=== PATIENT | male | born 1975 | race Caucasian/White ===

== ENCOUNTER 2023-12-07 20:50 | Emergency (ER) | payer SELFPAY ==
--- OUTSIDE RECORDS SUMMARY | 2023-12-07 20:54 | XMS REPORT | Continuity of Care Document ---
Author Name Unknown Address [address] [facility] [address] [place], [place] [id number] [place] [address] thconnect Address [address] [facility] [address] [place] [address] Care Team Providers Care Monument Letterer Name Role Phone Shivam Beth Attending Clinician Unavailable Kellen Salinas Attending Clinician Unavailab le Physician, No Primary or Family Admitting Clinic caren Unavailable Shivam Beth Admitting Clinician Unavailable Payers Payer Name Policy Type Policy Number Effective Date Expirati on Date Source Allergies, Adverse Reactions, Alerts Allergy Name Allergy Type Status Severity Reaction(s) Onset Date Inactive Date Treating Clinician Comments Source cephalex in DA Active [place] RASH-UNKNOWN 09-15 00:00: 00 [facility] are [facility] cephalex in DA Active MO RASH-UNKNOWN 09-10 00:00: 00 [facility] are [facility] Encounters Start Date/Time End Date/Time Encounter Type Admission Type Attending Clinicians Care Facility Care Department Encounter ID Source 2023-09-19 12:21:00 2023-09-19 12:21:00 Outpatient Shivam BethW REF [id number] [facility] 2023-09-16 19:53:00 2023-09-19 11:54:00 Inpatient EM Shivam Beth TELE [id number] [facility] [place] 2023-09-11 20:22:00 2023-09-11 21:00:00 Emergency EM Kellen Salinas CERS [id number] [facility] are [place] Results Test Description Test Time Test Comments Results Result Co mments Source [id number] 19:49:00* Test Item Value Reference Range Interpretation Comme nts GLUBED (test code = GLUBED) 208 mg/dL 70-105 H Intravenous admi nistration of N-acetylcysteine which resultsin blood concentrations >5 mg/dL will cause overestimationof blood glucose results. Do not use during intravenousinfusion of N'acetylcysteine. [id number] 16:28:00* Test Item Value Reference Range Interpretation Comme nts GLUBED (test code = GLUBED) 176 mg/dL 70-105 H Intravenous admi nistration of N-acetylcysteine which resultsin blood concentrations >5 mg/dL will cause overestimationof blood glucose results. Do not use during intravenousinfusion of N'acetylcysteine. [id number] 12:28:00* Test Item Value Reference Range Interpretation Comme nts GLUBED (test code = GLUBED) 165 mg/dL 70-105 H Intravenous admi nistration of N-acetylcysteine which resultsin blood concentrations >5 mg/dL will cause overestimationof blood glucose results. Do not use during intravenousinfusion of N'acetylcysteine. [id number] 08:08:00* Test Item Value Reference Range Interpretation Comme nts GLUBED (test code = GLUBED) 156 mg/dL 70-105 H Intravenous admi nistration of N-acetylcysteine which resultsin blood concentrations >5 mg/dL will cause overestimationof blood glucose results. Do not use during intravenousinfusion of N'acetylcysteine. VANCOMYCIN [id number] 03:24:00* Test Item Value Reference Range Interpretation Comme nts VANCOMYCIN TROUGH (test code = VANCT) 15.1 ug/mL 10.0-20.0 N BASIC METABOLIC [id number] 03:22:00* Test Item Value Reference Range Interpretation Comme nts SODIUM (test code = NA) 135 mmol/L 135-145 N POTASSIUM (test code = K) 3.5 mmol/L 3.5-5.1 N CHLORIDE (test code = CL) 104 mmol/L 98-107 N CARBON DIOXIDE (test code = CO2) 28 mmol/L 21-32 N ANION GAP (test code = GAP) 6.5 2.0-16.0 N GLUCOSE (test code = GLU) 172 mg/dL 65-99 H BLOOD UREA NITROGEN (test code = BUN) 10 mg/dL 4-23 N GLOMERULAR FILTRATION RATE (test code = GFR) >=60 max estimate ml/min The Glomerular Filtration Rate is a calculated parameterbased on serum Creatinine, patient age and sex. GFR valuesless than 60 mL/min/1.73 square meters are indicative ofChronic Kidney Disease. Values less than 15 mL/min/1.73square meters indicate Kidney failure. The calculation forGFR is based on the CKD-EPI (202) calculation. This formulais race indifferent and is the recommended formula for GFRby the National Kidney Foundation for Adults.The GFR will not calculate if the sex is unknown or if thepatient's age is <18 years. CREATININE (test code = CREAT) 0.6 mg/dL 0.6-1.5 N BUN/CREATININE RATIO (test code = BUN/CREA) 16.7 12.0-20.0 N CALCIUM (test code = CA) 8.3 mg/dL 8.5-10.1 L RAPID PLASMA [id number] 03:13:00* Test Item Value Reference Range Interpretation Comme nts RAPID PLASMA REAGIN (test code = RPR) Non Reactive Performed At: [facility] [address] [id number] Rene Lawson MD Ph:[phone] HIV 1 2 COMBO AG/AB [id number] 03:13:00* Test Item Value Reference Range Interpretation Comme nts HIV 1 2 COMBO AG/AB SCREEN (test code = [id number]) Non-Reactive NONREACTIVE N The [facility] HIV Ag/Ab Combo (CHIV) assay is anin-vitro diagnostic immunoassay for the simultaneousqualitative detection of human immunodeficiency virus [id number] and antibodies to human immunodeficiency virusestype 1 (including group "O") and type 2. CBC W/AUTO [id number] 03:07:00* Test Item Value Reference Range Interpretation Comme nts WHITE BLOOD CELL (test code = WBC) 21.2 10 3/uL 4.5-11.0 H RED BLOOD CELL (test code = RBC) 4.33 10 6/uL 4.30-5.90 N HEMOGLOBIN (test code = HGB) 13.0 g/dL 14.0-18.0 L HEMATOCRIT (test code = HCT) 38.9 % 40.0-55.0 L MEAN CELL VOLUME (test code = MCV) 90 fL 81-102 N MEAN CELL HGB (test code = MCH) 30.0 pg 26.0-34.0 N MEAN CELL HGB CONCENTRATION (test code = MCHC) 33.4 g/dL 31.0-37.0 N RED CELL DISTRIBUTION WIDTH (test code = RDW) 14.3 % 11.6-14.4 N PLATELET COUNT (test code = PLT) 340 10 3/uL 150-400 N MEAN PLATELET VOLUME (test code = MPV) 11.5 fL 9.0-12.6 N NEUTROPHIL % (test code = NT%) 75.3 % 33.0-76.0 N IMMATURE GRANULOCYTE % (test code = IG%) 0.7 % 0.0-1.0 N LYMPHOCYTE % (test code = LY%) 9.8 % 14.0-56.4 L MONOCYTE % (test code = MO%) 9.4 % 0.0-12.9 N EOSINOPHIL % (test code = EO%) 4.3 % 0.0-7.0 N BASOPHIL % (test code = BA%) 0.5 % 0-2.0 N NUCLEATED RBC % (test code = NRBC%) 0.0 % 0-0.2 N NEUTROPHIL # (test code = NT#) 15.98 10 3/uL 1.5-7.0 H IMMATURE GRANULOCYTE # (test code = IG#) 0.140 x10 3/uL 0.000-0.100 H LYMPHOCYTE # (test code = LY#) 2.09 10 3/uL 1.50-4.00 N MONOCYTE # (test code = MO#) 1.99 10 3/uL 0.20-0.80 H EOSINOPHIL # (test code = EO#) 0.91 10 3/uL 0.0-0.5 H BASOPHIL # (test code = BA#) 0.11 10 3/uL 0.0-0.1 H NUCLEATED RBC # (test code = NRBC#) 0.000 10 3/uL 0.000-0.012 N [id number] 20:47:00* Test Item Value Reference Range Interpretation Comme nts GLUBED (test code = GLUBED) 273 mg/dL 70-105 H Intravenous admi nistration of N-acetylcysteine which resultsin blood concentrations >5 mg/dL will cause overestimationof blood glucose results. Do not use during intravenousinfusion of N'acetylcysteine. LIPID PROFILE (CORONARY RISK)2023-09-17 20:43:00* Test Item Value Reference Range Interpretation Comme [facility] TRIGLYCERIDES (test code = TRIG) 238 mg/dL 0-149 H CHOLESTEROL (test code = CHOL) 181 mg/dL 0-200 N CHOLESTEROL/HDL RATIO (test code = CHOLHDL) 6 1-6 N HDL CHOLESTEROL (test code = HDL) 32 mg/dL 40-60 L LIPOPROTEIN LDL (test code = LDLC) 114 mg/dL 0-100 H [id number] 20:43:00* Test Item Value Reference Range Interpretation [facility] AMYLASE (test code = ROSALBA) 22 U/L 25-115 L [id number] 20:43:00* Test Item Value Reference Range Interpretation [facility] LIPASE (test code = LIP) 31 U/L 13-75 N CAUTION: Patient Reference Range of the current Lipase method differs significantly from the prior Lipase Reference range. (prior range 73-393 U/L) [id number] 16:29:00* Test Item Value Reference Range Interpretation [facility] GLUBED (test code = GLUBED) 215 mg/dL 70-105 H Intravenous admi nistration of N-acetylcysteine which resultsin blood concentrations >5 mg/dL will cause overestimationof blood glucose results. Do not use during intravenousinfusion of N'acetylcysteine. CBC W/AUTO [id number] 14:22:00* Test Item Value Reference Range Interpretation Comme [facility] WHITE BLOOD CELL (test code = WBC) 21.0 10 3/uL 4.5-11.0 H RED BLOOD CELL (test code = RBC) 4.49 10 6/uL 4.30-5.90 N HEMOGLOBIN (test code = HGB) 13.3 g/dL 14.0-18.0 L HEMATOCRIT (test code = HCT) 40.0 % 40.0-55.0 N MEAN CELL VOLUME (test code = MCV) 89 fL 81-102 MEAN CELL HGB (test code = MCH) 29.6 pg 26.0-34.0 N MEAN CELL HGB CONCENTRATION (test code = MCHC) 33.3 g/dL 31.0-37.0 N RED CELL DISTRIBUTION WIDTH (test code = RDW) 14.5 % 11.6-14.4 H PLATELET COUNT (test code = PLT) 338 10 3/uL 150-400 N MEAN PLATELET VOLUME (test code = MPV) 12.0 fL 9.0-12.6 N NEUTROPHIL % (test code = NT%) 71.1 % 33.0-76.0 N IMMATURE GRANULOCYTE % (test code = IG%) 0.5 % 0.0-1.0 N LYMPHOCYTE % (test code = LY%) 13.7 % 14.0-56.4 L MONOCYTE % (test code = MO%) 9.3 % 0.0-12.9 N EOSINOPHIL % (test code = EO%) 4.8 % 0.0-7.0 N BASOPHIL % (test code = BA%) 0.6 % 0-2.0 N NUCLEATED RBC % (test code = NRBC%) 0.0 % 0-0.2 N NEUTROPHIL # (test code = NT#) 14.98 10 3/uL 1.5-7.0 H IMMATURE GRANULOCYTE # (test code = IG#) 0.110 x10 3/uL 0.000-0.100 H LYMPHOCYTE # (test code = LY#) 2.88 10 3/uL 1.50-4.00 N MONOCYTE # (test code = MO#) 1.95 10 3/uL 0.20-0.80 H EOSINOPHIL # (test code = EO#) 1.00 10 3/uL 0.0-0.5 H BASOPHIL # (test code = BA#) 0.12 10 3/uL 0.0-0.1 H NUCLEATED RBC # (test code = NRBC#) 0.000 10 3/uL 0.000-0.012 N SED [id number] 14:22:00* Test Item Value Reference Range Interpretation Comme nts SED RATE (test code = SEDW) 28 mm/hr 0-20 H AB HEPATITIS A [id number] 14:11:00* Test Item Value Reference Range Interpretation Comme nts AB HEPATITIS A IGM (test cod e = HAVMAB) Non-Reactive NONREACTIVE AG HEPATITIS B [id number] 14:11:00* Test Item Value Reference Range Interpretation Comme nts AG HEPATITIS B SURFACE (test code = HBSAG) Non-Reactive NONREACTIVE AB HEPATITIS B CORE [id number] 14:11:00* Test Item Value Reference Range Interpretation Comme nts AB HEPATITIS B CORE IGM (kemi t code = HBCMAB) Non-Reactive NONREACTIVE AB HEPATITIS [id number] 14:11:00* Test Item Value Reference Range Interpretation Comme nts AB HEPATITIS C (test code = HCVAB) Non-Reactive NONREACTIVE HGBA1C - GLYCOSYLATED [id number] 14:08:00* Test Item Value Reference Range Interpretation Comme nts GLYCOSYLATED HEMOGLOBIN (HA1C) (test code = GLYHGB) 8.3 % 4.5-5.9 H The [place] Diabetes Association recommends a therapeuticrange of <7.0% Hemoglobin A1c for patients with diabetesmellitus (Type 2 diabetes). BASIC METABOLIC [id number] 13:35:00* Test Item Value Reference Range Interpretation Comme nts SODIUM (test code = NA) 134 mmol/L 135-145 L POTASSIUM (test code = K) 3.7 mmol/L 3.5-5.1 N CHLORIDE (test code = CL) 104 mmol/L 98-107 N CARBON DIOXIDE (test code = CO2) 28 mmol/L 21-32 N ANION GAP (test code = GAP) 5.7 2.0-16.0 N GLUCOSE (test code = GLU) 222 mg/dL 65-99 H BLOOD UREA NITROGEN (test code = BUN) 10 mg/dL 4-23 N GLOMERULAR FILTRATION RATE (test code = GFR) >=60 max estimate ml/min The Glomerular Filtration Rate is a calculated parameterbased on serum Creatinine, patient age and sex. GFR valuesless than 60 mL/min/1.73 square meters are indicative ofChronic Kidney Disease. Values less than 15 mL/min/1.73square meters indicate Kidney failure. The calculation forGFR is based on the CKD-EPI (202) calculation. This formulais race indifferent and is the recommended formula for GFRby the National Kidney Foundation for Adults.The GFR will not calculate if the sex is unknown or if thepatient's age is <18 years. CREATININE (test code = CREAT) 0.6 mg/dL 0.6-1.5 N BUN/CREATININE RATIO (test code = BUN/CREA) 16.7 12.0-20.0 N CALCIUM (test code = CA) 9.1 mg/dL 8.5-10.1 N [id number] 13:35:00* Test Item Value Reference Range Interpretation Comme nts PHOSPHOROUS (test code = PHOS) 2.6 mg/dL 2.5-4.9 N [id number] 13:35:00* Test Item Value Reference Range Interpretation Comme nts MAGNESIUM (test code = MAG) 2.1 mg/dL 1.8-2.4 N TSH REFLEX TO [id number] 13:35:00* Test Item Value Reference Range Interpretation Comme nts TSH REFLEX TO FT4 (test code = TSHREFLEX) 1.43 mIU/mL 0.36-3.74 N C REACTIVE [id number] 13:35:00* Test Item Value Reference Range Interpretation Comme nts C REACTIVE PROTEIN (test cod e = CRP) 7.45 mg/dL 0.00-0.33 H [id number] 12:29:00* Test Item Value Reference Range Interpretation Comme nts GLUBED (test code = GLUBED) 221 mg/dL 70-105 H Intravenous admi nistration of N-acetylcysteine which resultsin blood concentrations >5 mg/dL will cause overestimationof blood glucose results. Do not use during intravenousinfusion of N'acetylcysteine. [id number] 09:36:00* Test Item Value Reference Range Interpretation Comme nts GLUBED (test code = GLUBED) 239 mg/dL 70-105 H Intravenous admi nistration of N-acetylcysteine which resultsin blood concentrations >5 mg/dL will cause overestimationof blood glucose results. Do not use during intravenousinfusion of N'acetylcysteine. DRUGS OF ABUSE SCREEN [id number] 08:39:00* Test Item Value Reference Range Interpretation Comme nts UR COCAINE (test code = COCAU) NEGATIVE NEGATIVE Test Threshold L evels: Amphetamine: 500 ng/mL Methamphetamines: 500 ng/mL Barbiturates: 200 ng/mL Benzodiazepines: 150 ng/mL Cocaine: 150 ng/mL Methadone (EDDP): 200 ng/mL Opiates: 100 or 2000 ng/mL THC: 50 ng/mL TCA: 300 mg/mL This is a preliminary analytical result. A more specificalternative chemical method must be used in order to obtaina confirmed result. Unconfirmed Drugs of Abuse screening results should not beused for non-medical purposes. UR METHAMPHETAMINE (test code = METHAMPHU) NEGATIVE NEGATIVE UR CANABINOIDS (test code = CANU) NEGATIVE NEGATIVE UR AMPHETAMINE (test code = AMPHU) NEGATIVE NEGATIVE UR BARBITURATE (test code = BARBQLU) NEGATIVE NEGATIVE UR BENZODIAZEPINE (test code = BENZU) NEGATIVE NEGATIVE UR OPIATES QUAL (test code = OPIAQLU) POSITIVE NEGATIVE A UR TRICYCLICS (test code = TRICYCU) Negative NEGATIVE UR PHENCYCLIDINE (PCP) (test code = PHENCU) Negative NEGATIVE UA RFLX MICR CULT IF [id number] 08:07:00* Test Item Value Reference Range Interpretation Comme nts UA COLOR (test code = COLU) STRAW YELLOW UA APPEARANCE (test code = APPU) CLEAR CLEAR UA GLUCOSE DIPSTICK (test co de = DGLUU) 3+ NEGATIVE A UA BILIRUBIN DIPSTICK (test code = BILU) NEGATIVE NEGATIVE UA KETONE DIPSTICK (test cod e = KETU) NEGATIVE NEGATIVE UA SPECIFIC GRAVITY (test co de = SGU) 1.020 1.005-1.025 N UA BLOOD DIPSTICK (test code = GÓMEZ) NEGATIVE NEGATIVE UA PH DIPSTICK (test code = CHACE) 5.0 5.0-8.0 UA PROTEIN DIPSTICK (test co de = PROU) NEGATIVE NEGATIVE UA UROBILINOGEN DIPSTICK (te st code = URO) NEGATIVE EU/dL 0.1-0.2 UA NITRITE DIPSTICK (test co de = PATIENCE) NEGATIVE NEGATIVE UA LEUKOCYTE ESTERASE DIPSTI CK (test code = LEUU) NEGATIVE NEGATIVE UA WBC (test code = WBCU) 0-2 /hpf 0-3 UA RBC (test code = RBCU) NONE SEEN /hpf 0-3 UA BACTERIA (test code = BACU) RARE /HPF NEGATIVE UA SQUAMOUS CELLS (test code = SQU) RARE /HPF FEW Indication for culture: RiskForSepsis-no oth srcSpecimen Description: CLEAN CATCHCBC W/AUTO [id number] 01:20:00* Test Item Value Reference Range Interpretation Comme nts WHITE BLOOD CELL (test code = WBC) 20.9 10 3/uL 4.5-11.0 H RED BLOOD CELL (test code = RBC) 4.35 10 6/uL 4.30-5.90 N HEMOGLOBIN (test code = HGB) 13.0 g/dL 14.0-18.0 L HEMATOCRIT (test code = HCT) 40.7 % 40.0-55.0 N MEAN CELL VOLUME (test code = MCV) 94 fL 81-102 N MEAN CELL HGB (test code = MCH) 29.9 pg 26.0-34.0 N MEAN CELL HGB CONCENTRATION (test code = MCHC) 31.9 g/dL 31.0-37.0 N RED CELL DISTRIBUTION WIDTH (test code = RDW) 14.6 % 11.6-14.4 H PLATELET COUNT (test code = PLT) 330 10 3/uL 150-400 N MEAN PLATELET VOLUME (test code = MPV) 11.7 fL 9.0-12.6 N NEUTROPHIL % (test code = NT%) 65.8 % 33.0-76.0 N IMMATURE GRANULOCYTE % (test code = IG%) 1.6 % 0.0-1.0 H LYMPHOCYTE % (test code = LY%) 18.0 % 14.0-56.4 N MONOCYTE % (test code = MO%) 10.4 % 0.0-12.9 N EOSINOPHIL % (test code = EO%) 3.7 % 0.0-7.0 N BASOPHIL % (test code = BA%) 0.5 % 0-2.0 N NUCLEATED RBC % (test code = NRBC%) 0.0 % 0-0.2 N NEUTROPHIL # (test code = NT#) 13.73 10 3/uL 1.5-7.0 H IMMATURE GRANULOCYTE # (test code = IG#) 0.340 x10 3/uL 0.000-0.100 H LYMPHOCYTE # (test code = LY#) 3.75 10 3/uL 1.50-4.00 N MONOCYTE # (test code = MO#) 2.17 10 3/uL 0.20-0.80 H EOSINOPHIL # (test code = EO#) 0.78 10 3/uL 0.0-0.5 H BASOPHIL # (test code = BA#) 0.11 10 3/uL 0.0-0.1 H NUCLEATED RBC # (test code = NRBC#) 0.000 10 3/uL 0.000-0.012 N [id number] 22:08:00* Test Item Value Reference Range Interpretation Comme nts GLUBED (test code = GLUBED) 225 mg/dL 70-105 H Intravenous admi nistration of N-acetylcysteine which resultsin blood concentrations >5 mg/dL will cause overestimationof blood glucose results. Do not use during intravenousinfusion of N'acetylcysteine. Notes Date/Time Note Provider Source 2023-09-19 11:17:00 [facility] [place] Endocrinology Progress Note REPORT #: [id number] REPORT STATUS: Signed DATE: 09/19/23 TIME: 1116 PATIENT: CATA MERA UNIT #: [id number] ROOM #: [id number] BED: 1 : 75 AGE: 48 SEX: M ATTEND: Shivam Beth MD ADM AUTHOR: Homero Roach MD ATTENTION *EDITS and/or ADDENDA must be made in Patient Keeper for this note. * * Edits and ammendments created in [facility] are not visible * * in Patient Keeper or the legal medical record (HPF). * -- ASSESSMENT AND PLAN -- PROBLEMS: 1: Type 2 diabetes mellitus with hyperglycemia A/P: UNCONTROLLED (QVZE8T=0.3%,HYPERGLYCEMIA) TYPE II DM EXACERBATED BY INFECTION IMPROVED GLYCEMIC CONTROL: CLQ=983 HS GNGQDOB=[birth year]. OBSERVE ON SQ BASAL/BOLUS INSULIN PLUS LINAGLIPTIN. DIABETES AND NUTRITION EDUCATION. OK FROM ENDOCRINE STANDPOINT FOR DISCHARGE ONCE DIABETES EDUCATION COMPLETED. DISCUSSED WITH NURSE. THANK YOU. WILL SIGN OFF. -- SUBJECTIVE -- CHIEF COMPLAINT: HYPERGLYCEMIA HPI: EVENTS NOTED: TOLERATING DIET. -- OBJECTIVE -- VITALS (09/17 11:17 - 09/18 11:17): Temperature C: 36.8 (36.5 - 36.8) Temperature source: Oral Pulse Rate 89 (68 - 94) Respiratory rate: 18 (16 - 19) Blood pressure: 164/76 (152/65 - 193/91) -EXAM- GENERAL: Well developed, well nourished, in no apparent distress. HEAD: Normocephalic, atraumatic. NECK: trachea midline. CHEST: Grossly normal appearance. HEART: NO TACHYCARDIA ABDOMEN: NON-DISTENDED NEUROLOGICAL: NORMAL SPEECH PSYCHIATRIC: Alert and oriented to time, person, place -- DATA -- MEDICATIONS NICOTINE 21 MG TRANSDERM DAILY MELATONIN 3 MG PO BEDTIME PRN diphenhydrAMINE HCL 25 MG PO DAILY PRN DEXTROSE 50%-WATER 50 ML IV ASDIR PATIENT'S OWN MEDICATION 1 APPLICATION TOPICALLY TWICE TOPICAL BID ALPRAZolam 0.5 MG PO BID PRN MAG HYDROX/AL HYDROX/SIMETH 30 ML PO Q6H PRN HYDROcodone BITARTRATE/APAP 1 TAB PO Q4H PRN HYDROcodone BITARTRATE/APAP 1 TAB PO Q4H PRN ACETAMINOPHEN 650 MG PO Q4H PRN hydrALAZINE HCL 10 MG IV Q6H PRN INSULIN LISPRO 0 UNITS SUBQ AC HS polyethylene glycoL 3350 1 PKT PO DAILY PRN DOCUSATE SODIUM 100 MG PO BID PRN NIFEdipine 30 MG PO Q12HR INSULIN GLARGINE 36 UNITS SUBQ QAM@0800 ENOXAPARIN SODIUM 40 MG SUBQ DAILY LINEZOLID 600 MG PO Q12HR ONDANSETRON HCL/PF 4 MG IV Q4H PRN LINAGLIPTIN 5 MG PO DAILY GLUCAGON 1 MG IM ASDIR PRN LABS CBC W/AUTO DIFF (09/19/23 06:13) WHITE BLOOD CELL 15.4H H RED BLOOD CELL 4.30 HEMOGLOBIN 12.6L L HEMATOCRIT 39.9L L MEAN CELL VOLUME 93 D MEAN CELL HGB 29.3 MEAN CELL HGB CONCENTRATION 31.6 RED CELL DISTRIBUTION WIDTH 14.6 H PLATELET COUNT 354 MEAN PLATELET VOLUME 11.1 NEUTROPHIL % 62.6 IMMATURE GRANULOCYTE % 0.8 LYMPHOCYTE % 18.7 MONOCYTE % 12.1 EOSINOPHIL % 5.1 BASOPHIL % 0.7 NUCLEATED RBC % 0.0 NEUTROPHIL # 9.65 H IMMATURE GRANULOCYTE # 0.120 H LYMPHOCYTE # 2.87 MONOCYTE # 1.86 H EOSINOPHIL # 0.78 H BASOPHIL # 0.10 NUCLEATED RBC # 0.000 GLU BED (09/18/23 19:48) GLUBED 208 H GLU BED (09/18/23 16:27) GLUBED 176 H GLU BED (09/18/23 12:27) GLUBED 165 H -- ATTESTATION -- TIME SPENT ON PATIENT CARE: - Direct 30 minutes CARE ACTIVITIES / CARE COORDINATION: - I have reviewed the history and repeated the burrell elements - I have seen and examined this patient - I have reviewed the progress in the clinical course since the last examination - I have discussed the patient's condition with other members of the care team ADDITIONAL DETAIL: I HAVE SPENT >35 MINUTES IN THE EVALUATION AND TREATMENT OF THIS PATIENT. Signed in PatientKeeper by Homero Roach MD on 09/19/23 at 11:19 at 1119 ATTENTION *EDITS and/or ADDENDA must be made in Patient Keeper for this note. * * Edits and ammendments created in [facility] are not visible * * in Patient Keeper or the legal medical record (HPF). * RPT #: [id number] END OF REPORT [facility] 2023-09-19 10:23:00 [facility] [place] Med Order Sheet REPORT #: [id number] REPORT STATUS: Signed DATE: 09/19/23 TIME: 1023 PATIENT: CATA MERA UNIT #: [id number] ROOM #: [id number] BED: 1 : 75 AGE: 48 SEX: M ATTEND: Shivam Beth MD ADM AUTHOR: Cesario Daniel DO ATTENTION *EDITS and/or ADDENDA must be made in Patient Keeper for this note. * * Edits and ammendments created in [facility] are not visible * * in Patient Keeper or the legal medical record (HPF). * Discharge Medication Reconciliation DISCHARGE MEDICATION LIST Linezolid Tab (Zyvox Tab) Dose: 600MG PO Q12HR, Disp: 28 tablet, Refills: 0 Desonide lotn 0.05 % Dose: 1 APPLIC TOPICAL BID diphenhydrAMINE capsule Dose: oral Insulin (NPH/Reg 70/30) Inj (HumuLIN 70/30 Inj) Dose: 6 UNITS SUBQ AC BK Insulin Aspart Inj (NF) (NovoLOG Inj (NF)) Dose: 1 UNITS SUBQ ASDIR NIFEdipine XL Tab (Procardia XL Tab) Dose: 30MG PO Q12HR, Disp: 60 tablet, Refills: 1 Linagliptin Tab (Tradjenta Tab) Dose: 5MG PO DAILY, Disp: 30 tablet, Refills: 1 The following Hospital Medications have not yet been reconciled: Acetaminophen Tab (Tylenol Tab) 650MG PO Q4H PRN pain 1-3/temp > 100.5/headache stopping on 10/15 at 22:01 ALPRAZolam Tab (Xanax Tab) 0.5MG PO BID PRN agitation or anxiety stopping on 09/26 at 09:01 Dextrose 50% Syringe (D50W Syringe) 50ML IV ASDIR stopping on 10/15 at 22:01 Docusate Sodium Cap (Colace Cap) 100MG PO BID PRN stool softener stopping on 10/16 at 09:01 Enoxaparin 40mg/0.4mL Inj (Lovenox 40mg/0.4mL Inj) 40MG SUBQ DAILY stopping on 10/16 at 09:01 Glucagon Inj 1MG IM ASDIR PRN hypoglycemia protocol stopping on 10/15 at 22:01 hydrALAZINE Inj (Apresoline Inj) 10MG IV Q6H PRN sbp>170 or dbp>105 stopping on 10/15 at 22:01 HYDROcodone/APAP 10/325 Tab ([place] 10/325 Tab) 1TAB PO Q4H PRN pain scale 7-10 stopping on 09/20 at 22:01 HYDROcodone/APAP 5/325 Tab ([place] 5/325 Tab) 1TAB PO Q4H PRN pain scale 4-6 stopping on 09/20 at 22:01 Insulin (Glargine) Inj (Lantus Inj) 36UNITS SUBQ QAM@0800 stopping on 10/17 at 08:01 Mag/Al/Simeth Oral Liquid (Maalox Max Oral Liquid) 30ML PO Q6H PRN indigestion/heartburn stopping on 10/15 at 22:01 Melatonin Tab 3MG PO BEDTIME PRN insomnia stopping on 10/16 at 21:01 Nicotine 21mg/24hr Patch (Nicoderm CQ 21mg/24hr Patch) 21MG TRANSDERM DAILY stopping on 10/16 at 01:09 Ondansetron Inj (Zofran Inj) 4MG IV Q4H PRN nausea and vomiting stopping on 10/15 at 22:01 Patient's Own Medication (Patient's Own Medication) 1 APPLICATION TOPICALLY TWICE TOPICAL BID stopping on 10/16 at 21:01 Polyethylene Glycol Powder (Miralax Powder) 1PKT PO DAILY PRN constipation stopping on 10/16 at 09:01 at 1023 ATTENTION *EDITS and/or ADDENDA must be made in Patient Keeper for this note. * * Edits and ammendments created in [facility] are not visible * * in Patient Keeper or the legal medical record ([facility] * RPT #: [id number] END OF REPORT [facility] 2023-09-19 10:23:00 [facility] [place] Hospitalist D/C Summary REPORT #: [id number] REPORT STATUS: Signed DATE: 09/19/23 TIME: 1023 PATIENT: CATA MERA UNIT #: [id number] ROOM #: [id number] BED: 1 : 75 AGE: 48 SEX: M ATTEND: Shivam Beth MD ADM AUTHOR: Cesario Daniel DO ATTENTION *EDITS and/or ADDENDA must be made in Patient Keeper for this note. * * Edits and ammendments created in [employer] are not visible * * in Patient Keeper or the legal medical record ([facility] * -- PROBLEMS/PROCEDURES -- ADMISSION DATE: 09/16/23 ADMITTING DIAGNOSES: - Cellulitis - Type 2 diabetes mellitus with hyperglycemia DISCHARGE DATE: 09/19/23 DISCHARGE DIAGNOSES: - Cellulitis - Type 2 diabetes mellitus with hyperglycemia -- HOSPITAL COURSE -- HOSPITAL COURSE: This is a 48-year-old male with past medical history of hypertension, hyperlipidemia, newly diagnosed DM 2, polysubstance abuse/IVDA, and prior history of MRSA, who presented to our facility from an outside ER to be evaluated for possibly staph infection and what appears to be severe folliculitis, diffuse however worse on left upper extremity. Patient started on IV antibiotics with improvement in symptoms. Patient was cleared for discharge by ID. Patient discharged on Zyvox for 14 days. Date of discharge patient doing well, labs and vital stable. -- DISCHARGE MEDICATIONS -- ALLERGIES: cephalexin (Intermediate - Allergy) DISCHARGE MEDICATIONS: Please refer to Discharge Medication list for a complete list of discharge medications Desonide lotn 0.05 % 1 APPLIC TOPICAL BID diphenhydrAMINE capsule oral (Route: ORAL) Insulin (NPH/Reg 70/30) Inj (HumuLIN 70/30 Inj) 6 UNITS SUBQ AC BK Insulin Aspart Inj (NF) (NovoLOG Inj (NF)) 1 UNITS SUBQ ASDIR Linagliptin Tab (Tradjenta Tab) 5MG PO DAILY, Disp: 30 tablet, Refills: 1 Linezolid Tab (Zyvox Tab) 600MG PO Q12HR, Disp: 28 tablet, Refills: 0 NIFEdipine XL Tab (Procardia XL Tab) 30MG PO Q12HR, Disp: 60 tablet, Refills: 1 -- DISCHARGE INSTRUCTIONS -- PENDING LABS/TESTS AT DISCHARGE: DNA PROBE GC/CHLAMYDIA GENITAL (09/17/23 07:43) Status: Received PK DISCHARGE ORDERS: DC Order - No eCQM 2019. Details: Details: Order number: [id number] Category: PKDC - PK Discharge Orders Order status: Transmitted Details: Discharge order: Yes Discharge to: Home/Self Care Diet: Resume Home Diet/Feeds Activity: Resume Normal Activity PCP follow up timeframe: In 1-2 weeks Additional Discharge Routines: PCP Follow-Up Ordered by: Cesario Daniel DO Sep 19, 2023 10:24am Entered by: Cesario Daniel DO Service date: Sep 19, 2023 10:23am Discharge w/Instructions ADDTIONAL DISCHARGE INSTRUCTIONS: Emergency Instructions: The patient was instructed to present to the nearest Emergency Department or call 911 should their symptoms return or worsen.; -- OBJECTIVE -- VITALS (09/17 10:23 - 09/18 10:23): Temperature C: 36.8 (36.5 - 36.8) Temperature source: Oral Pulse Rate 89 (68 - 94) Respiratory rate: 18 (16 - 19) Blood pressure: 164/76 (152/65 - 193/91) -EXAM- OTHER: GENERAL: No acute distress, non-toxic appearing, awake and conversant. HEAD: Normal with no signs of head trauma. EYES: PERRLA, EOMI, conjunctiva normal, no discharge. ENT: Hearing grossly intact, no nasal discharge, moist oral mucosa. NECK: Neck is supple, no tenderness, no masses or thyromegaly, no JVD. LUNGS: Clear breath sounds bilaterally. No wheezes, rales, or rhonchi. HEART: RRR, NL S1/S2, no murmurs, no lower extremity edema. ABD: Bowel sounds +, soft, nondistended, no guarding or rebound. EXT: Normal range of motion, no joint swelling, no clubbing, no cyanosis. SKIN: diffuse rashes more pronounced in upper extremities, NEURO: Alert and oriented x 3. Normal affect. -- DATA -- LABS CBC W/AUTO DIFF (09/19/23 06:13) WHITE BLOOD CELL 15.4H H RED BLOOD CELL 4.30 HEMOGLOBIN 12.6L L HEMATOCRIT 39.9L L MEAN CELL VOLUME 93 D MEAN CELL HGB 29.3 MEAN CELL HGB CONCENTRATION 31.6 RED CELL DISTRIBUTION WIDTH 14.6 H PLATELET COUNT 354 MEAN PLATELET VOLUME 11.1 NEUTROPHIL % 62.6 IMMATURE GRANULOCYTE % 0.8 LYMPHOCYTE % 18.7 MONOCYTE % 12.1 EOSINOPHIL % 5.1 BASOPHIL % 0.7 NUCLEATED RBC % 0.0 NEUTROPHIL # 9.65 H IMMATURE GRANULOCYTE # 0.120 H LYMPHOCYTE # 2.87 MONOCYTE # 1.86 H EOSINOPHIL # 0.78 H BASOPHIL # 0.10 NUCLEATED RBC # 0.000 GLU BED (09/18/23 19:48) GLUBED 208 H GLU BED (09/18/23 16:27) GLUBED 176 H GLU BED (09/18/23 12:27) GLUBED 165 H -- ATTESTATION -- TIME SPENT ON PATIENT CARE: - Direct 40 minutes - Discharge planning 45 minutes CARE ACTIVITIES / CARE COORDINATION: - I have reviewed the history and repeated the burrell elements - I have seen and examined this patient - I have reviewed the progress in the clinical course since the last examination - I have discussed the patient's condition with other members of the care team Signed in PatientKeeper by Cesario Daniel DO on 09/19/23 at 12:07 at 1207 ATTENTION *EDITS and/or ADDENDA must be made in Patient Keeper for this note. * * Edits and ammendments created in [facility] are not visible * * in Patient Keeper or the legal medical record ([facility]). * RPT #: [id number] END OF REPORT [facility] 2023-09-18 16:11:00 [facility] [place] Infect. Dis. Progress Note REPORT #: [id number] REPORT STATUS: Signed DATE: 09/18/23 TIME: 161 PATIENT: CATA MERA UNIT #: [id number] ROOM #: [id number] BED: 1 : 75 AGE: 48 SEX: M ATTEND: Shivam Beth MD ADM AUTHOR: Darrick Moffett MD ATTENTION *EDITS and/or ADDENDA must be made in Patient Keeper for this note. * * Edits and ammendments created in [email or web address] are not visible * * in Patient Keeper or the legal medical record ([facility]). * -- ASSESSMENT AND PLAN -- GENERAL ASSESSMENT: #RUE cellulitis/folliculitis - MRSA #History of MRSA infection #DM2 #Polysubstance abuse Plan: - po Linezolid x 14 days (needs to have [facility] pharmacy or [facility] for affordable prices) -Avoid illicit drugs -- SUBJECTIVE -- HPI: chart reviewed. c/o pains left leg and both arms no fevers -- OBJECTIVE -- VITALS (09/16 16:11 - 09/17 16:11): Temperature C: 36.7 (36.6 - 36.8) Temperature source: Oral Pulse Rate 90 (78 - 92) Respiratory rate: 19 (17 - 19) Blood pressure: 170/91 (137/72 - 181/91) -EXAM- OTHER: Physical Exam: Not in acute distress, not using accessory muscles Eyes: no jaundice ENT: no thrush, hearing CV: S1 S2 regular Lungs: CTA bilaterally Abdomen: soft, non tender No ankle edema No skin rash redness both arms and left leg Neuro: no evident deficits Psyche: appropriate -- DATA -- MEDICATIONS NICOTINE 21 MG TRANSDERM DAILY ALPRAZolam 0.5 MG PO BID PRN VANCOMYCIN HCL with/in SODIUM CHLORIDE 0.9% 1250 MG IV Q8H DOCUSATE SODIUM 100 MG PO BID PRN NIFEdipine 30 MG PO Q12HR ONDANSETRON HCL/PF 4 MG IV Q4H PRN GLUCAGON 1 MG IM ASDIR PRN VANCOMYCIN PHARMACY TO DOSE 1 EACH IV ASDIR MELATONIN 3 MG PO BEDTIME PRN diphenhydrAMINE HCL 25 MG PO DAILY PRN DEXTROSE 50%-WATER 50 ML IV ASDIR PATIENT'S OWN MEDICATION 1 APPLICATION TOPICALLY TWICE TOPICAL BID MAG HYDROX/AL HYDROX/SIMETH 30 ML PO Q6H PRN HYDROcodone BITARTRATE/APAP 1 TAB PO Q4H PRN HYDROcodone BITARTRATE/APAP 1 TAB PO Q4H PRN ACETAMINOPHEN 650 MG PO Q4H PRN hydrALAZINE HCL 10 MG IV Q6H PRN INSULIN LISPRO 0 UNITS SUBQ AC HS polyethylene glycoL 3350 1 PKT PO DAILY PRN INSULIN GLARGINE 36 UNITS SUBQ QAM@0800 ENOXAPARIN SODIUM 40 MG SUBQ DAILY LINAGLIPTIN 5 MG PO DAILY LABS GLU BED (09/18/23 12:27) GLUBED 165 H GLU BED (09/18/23 08:07) GLUBED 156 H CBC W/AUTO DIFF (09/18/23 02:51) WHITE BLOOD CELL 21.2H H RED BLOOD CELL 4.33 HEMOGLOBIN 13.0L L HEMATOCRIT 38.9L L MEAN CELL VOLUME 90 MEAN CELL HGB 30.0 MEAN CELL HGB CONCENTRATION 33.4 RED CELL DISTRIBUTION WIDTH 14.3 PLATELET COUNT 340 MEAN PLATELET VOLUME 11.5 NEUTROPHIL % 75.3 IMMATURE GRANULOCYTE % 0.7 LYMPHOCYTE % 9.8 L MONOCYTE % 9.4 EOSINOPHIL % 4.3 BASOPHIL % 0.5 NUCLEATED RBC % 0.0 NEUTROPHIL # 15.98 H IMMATURE GRANULOCYTE # 0.140 H LYMPHOCYTE # 2.09 MONOCYTE # 1.99 H EOSINOPHIL # 0.91 H BASOPHIL # 0.11 H NUCLEATED RBC # 0.000 VANCO TR (09/18/23 02:51) VANCOMYCIN TROUGH 15.1 BASIC METABOLIC PANEL (09/18/23 02:51) SODIUM 135 POTASSIUM 3.5 CHLORIDE 104 CARBON DIOXIDE 28 ANION GAP 6.5 GLUCOSE 172H H BLOOD UREA NITROGEN 10 GLOMERULAR FILTRATION RATE >=60 max estimate CREATININE 0.6 BUN/CREATININE RATIO 16.7 CALCIUM 8.3 L GLU BED (09/17/23 20:47) GLUBED 273 H LIPID PROFILE (CORONARY RISK) (09/17/23 19:45) TRIGLYCERIDES 238 H CHOLESTEROL 181 CHOLESTEROL/HDL RATIO 6 HDL CHOLESTEROL 32 L LIPOPROTEIN LDL 114 H LIP (09/17/23 19:45) LIPASE 31 ROSALBA (09/17/23 19:45) AMYLASE 22 L GLU BED (09/17/23 16:28) GLUBED 215 H Signed in PatientKeeper by Darrick Moffett MD on 09/18/23 at 16:12 at 1612 ATTENTION *EDITS and/or ADDENDA must be made in Patient Keeper for this note. * * Edits and ammendments created in [employer] are not visible * * in Patient Keeper or the legal medical record ([facility] * RPT #: [id number] END OF REPORT [facility] 2023-09-18 12:36:00 [facility] [place] Hospitalist Progress Note REPORT #: [id number] REPORT STATUS: Signed DATE: 09/18/23 TIME: 1236 PATIENT: CATA MERA UNIT #: [id number] ROOM #: [id number] BED: 1 : 75 AGE: 48 SEX: M ATTEND: Shivam Beth MD ADM AUTHOR: Cesario Daniel DO ATTENTION *EDITS and/or ADDENDA must be made in Patient Keeper for this note. * * Edits and ammendments created in [email or web address] are not visible * * in Patient Keeper or the legal medical record ([facility] * -- ASSESSMENT AND PLAN -- GENERAL ASSESSMENT: #Suspected folliculitis/abscess left forearm #H/O MRSA -Started on IV vancomycin and IV levaquin -ID consulted; recs appreciated -blood cx: neg -wound cx: -WOCN consult to further evaluate #DM 2 w/ hyperglycemia -ISS, Accu-Cheks qAC and HS -Hypoglycemic protocol -endo consult #HTN -Restart home medications -PRN IV Hydralazine -Monitor BP/HR q4h #Polysubstance abuse #Tobacco abuse -Nicotine replacement -Recommended complete abstinence #STD exposure -f/u STD labs, HIV, hepatitis panel #DVT PPx -Lovenox Disposition: Further recommendations based on clinical response. Code status: FULL CODE -- SUBJECTIVE -- HPI: No new complaints no new rashes -- OBJECTIVE -- VITALS (09/16 12:36 - 09/17 12:36): Temperature C: 36.7 (36.6 - 36.8) Temperature source: Oral Pulse Rate 90 (78 - 92) Respiratory rate: 19 (17 - 19) Blood pressure: 170/91 (137/72 - 181/91) -EXAM- OTHER: GENERAL: No acute distress, non-toxic appearing, awake and conversant. HEAD: Normal with no signs of head trauma. EYES: PERRLA, EOMI, conjunctiva normal, no discharge. ENT: Hearing grossly intact, no nasal discharge, moist oral mucosa. NECK: Neck is supple, no tenderness, no masses or thyromegaly, no JVD. LUNGS: Clear breath sounds bilaterally. No wheezes, rales, or rhonchi. HEART: RRR, NL S1/S2, no murmurs, no lower extremity edema. ABD: Bowel sounds +, soft, nondistended, no guarding or rebound. EXT: Normal range of motion, no joint swelling, no clubbing, no cyanosis. SKIN: diffuse rashes more pronounced in upper extremities, NEURO: Alert and oriented x 3. Normal affect. -- DATA -- MEDICATIONS NICOTINE 21 MG TRANSDERM DAILY ALPRAZolam 0.5 MG PO BID PRN VANCOMYCIN HCL with/in SODIUM CHLORIDE 0.9% 1250 MG IV Q8H DOCUSATE SODIUM 100 MG PO BID PRN NIFEdipine 30 MG PO Q12HR ONDANSETRON HCL/PF 4 MG IV Q4H PRN GLUCAGON 1 MG IM ASDIR PRN VANCOMYCIN PHARMACY TO DOSE 1 EACH IV ASDIR MELATONIN 3 MG PO BEDTIME PRN diphenhydrAMINE HCL 25 MG PO DAILY PRN DEXTROSE 50%-WATER 50 ML IV ASDIR PATIENT'S OWN MEDICATION 1 APPLICATION TOPICALLY TWICE TOPICAL BID LEVOFLOXACIN/DEXTROSE 5%-WATER 750 MG IV Q24H MAG HYDROX/AL HYDROX/SIMETH 30 ML PO Q6H PRN HYDROcodone BITARTRATE/APAP 1 TAB PO Q4H PRN HYDROcodone BITARTRATE/APAP 1 TAB PO Q4H PRN ACETAMINOPHEN 650 MG PO Q4H PRN hydrALAZINE HCL 10 MG IV Q6H PRN INSULIN LISPRO 0 UNITS SUBQ AC HS polyethylene glycoL 3350 1 PKT PO DAILY PRN INSULIN GLARGINE 36 UNITS SUBQ QAM@0800 ENOXAPARIN SODIUM 40 MG SUBQ DAILY LINAGLIPTIN 5 MG PO DAILY LABS GLU BED (09/18/23 12:27) GLUBED 165 H GLU BED (09/18/23 08:07) GLUBED 156 H CBC W/AUTO DIFF (09/18/23 02:51) WHITE BLOOD CELL 21.2H H RED BLOOD CELL 4.33 HEMOGLOBIN 13.0L L HEMATOCRIT 38.9L L MEAN CELL VOLUME 90 MEAN CELL HGB 30.0 MEAN CELL HGB CONCENTRATION 33.4 RED CELL DISTRIBUTION WIDTH 14.3 PLATELET COUNT 340 MEAN PLATELET VOLUME 11.5 NEUTROPHIL % 75.3 IMMATURE GRANULOCYTE % 0.7 LYMPHOCYTE % 9.8 L MONOCYTE % 9.4 EOSINOPHIL % 4.3 BASOPHIL % 0.5 NUCLEATED RBC % 0.0 NEUTROPHIL # 15.98 H IMMATURE GRANULOCYTE # 0.140 H LYMPHOCYTE # 2.09 MONOCYTE # 1.99 H EOSINOPHIL # 0.91 H BASOPHIL # 0.11 H NUCLEATED RBC # 0.000 VANCO TR (09/18/23 02:51) VANCOMYCIN TROUGH 15.1 BASIC METABOLIC PANEL (09/18/23 02:51) SODIUM 135 POTASSIUM 3.5 CHLORIDE 104 CARBON DIOXIDE 28 ANION GAP 6.5 GLUCOSE 172H H BLOOD UREA NITROGEN 10 GLOMERULAR FILTRATION RATE >=60 max estimate CREATININE 0.6 BUN/CREATININE RATIO 16.7 CALCIUM 8.3 L GLU BED (09/17/23 20:47) GLUBED 273 H LIPID PROFILE (CORONARY RISK) (09/17/23 19:45) TRIGLYCERIDES 238 H CHOLESTEROL 181 CHOLESTEROL/HDL RATIO 6 HDL CHOLESTEROL 32 L LIPOPROTEIN LDL 114 H LIP (09/17/23 19:45) LIPASE 31 ROSALBA (09/17/23 19:45) AMYLASE 22 L GLU BED (09/17/23 16:28) GLUBED 215 H -- QUALITY -- -VTE PROPHYLAXIS -GENERAL- Yes TYPE OF VTE Lovenox -- ATTESTATION -- TIME SPENT ON PATIENT CARE: - Direct 40 minutes CARE ACTIVITIES / CARE COORDINATION: - I have reviewed the history and repeated the burrell elements - I have seen and examined this patient - I have reviewed the progress in the clinical course since the last examination - I have discussed the patient's condition with other members of the care team Signed in PatientKeeper by Cesario Daniel DO on 09/18/23 at 12:37 at 1237 ATTENTION *EDITS and/or ADDENDA must be made in Patient Keeper for this note. * * Edits and ammendments created in [email or web address] are not visible * * in Patient Keeper or the legal medical record ([facility]). * RPT #: [id number] END OF REPORT [facility] 2023-09-18 10:30:00 [facility] [place] Endocrinology Consultation REPORT #: [id number] REPORT STATUS: Signed DATE: 09/18/23 TIME: 1030 PATIENT: CATA MERA UNIT #: [id number] ROOM #: [id number] BED: 1 : 75 AGE: 48 SEX: M ATTEND: Shivam Beth MD ADM AUTHOR: Homero Roach MD ATTENTION *EDITS and/or ADDENDA must be made in Patient Keeper for this note. * * Edits and ammendments created in [email or web address] are not visible * * in Patient Keeper or the legal medical record ([facility]). * -- ASSESSMENT AND PLAN -- PROBLEMS: 1: Type 2 diabetes mellitus with hyperglycemia A/P: UNCONTROLLED (ZCED2B=3.3%,HYPERGLYCEMIA) TYPE II DM EXACERBATED BY INFECTION. OBSERVE ON SQ BASAL/BOLUS INSULIN PLUS LINAGLIPTIN. DIABETES AND NUTRITION EDUCATION. OK FROM ENDOCRINE STANDPOINT FOR DISCHARGE ONCE DIABETES EDUCATION COMPLETED. -- HISTORY -- CONSULT REQUESTED BY: Shivam Beth MD REASON FOR CONSULT: HYPERGLYCEMIA CHIEF COMPLAINT: CELLULITIS RUE HPI: PATIENT ADMITTED WITH CELLULITIS OF THE RUE. HE WAS DIAGNOSED WITH TYPE II DM AT AGE 48. PATIENT CANNOT TAKE METFORMIN DUE TO GI SIDE EFFECTS. PAST MEDICAL HISTORY: Hypertension Hyperlipidemia DM type II Polysubstance abuse IVDA MRSA infection to spine PAST SURGICAL HISTORY: Back surgery due to MRSA infection Testicles FAMILY HISTORY: Noncontributory -SOCIAL HISTORY- -TOBACCO USE- DETAILS/COMMENTS: Smokes 1 pack of cigarettes daily -VAPING/INHALED SOLVENTS- DETAILS/COMMENTS: Denies use -ALCOHOL USE- DETAILS/COMMENTS: Denies use -DRUG USE- DETAILS/COMMENTS: Stop doing drugs 3 months ago -- ALLERGIES/HOME MEDS -- ALLERGIES: cephalexin (Intermediate - Allergy) HOME MEDICATIONS: Desonide lotn 0.05 % 1 APPLIC TOPICAL BID diphenhydrAMINE capsule oral Insulin (NPH/Reg 70/30) Inj (HumuLIN 70/30 Inj) 6 UNITS SUBQ AC BK Insulin Aspart Inj (NF) (NovoLOG Inj (NF)) 1 UNITS SUBQ ASDIR -- OBJECTIVE -- VITALS (09/16 10:30 - 09/17 10:30): Temperature C: 36.6 (36.6 - 36.8) Temperature source: Oral Pulse Rate 92 (77 - 92) Respiratory rate: 18 (17 - 18) Blood pressure: 137/77 (137/72 - 181/88) -EXAM- GENERAL: Well developed, well nourished, in no apparent distress. HEAD: Normocephalic, atraumatic. NECK: trachea midline. CHEST: Grossly normal appearance. HEART: NO TACHYCARDIA ABDOMEN: NON-DISTENDED NEUROLOGICAL: NORMAL SPEECH PSYCHIATRIC: Alert and oriented to time, person, place -- DATA -- MEDICATIONS NICOTINE 21 MG TRANSDERM DAILY ALPRAZolam 0.5 MG PO BID PRN VANCOMYCIN HCL with/in SODIUM CHLORIDE 0.9% 1250 MG IV Q8H DOCUSATE SODIUM 100 MG PO BID PRN NIFEdipine 30 MG PO Q12HR ONDANSETRON HCL/PF 4 MG IV Q4H PRN metFORMIN HCL 500 MG PO C BK DIN GLUCAGON 1 MG IM ASDIR PRN VANCOMYCIN PHARMACY TO DOSE 1 EACH IV ASDIR MELATONIN 3 MG PO BEDTIME PRN diphenhydrAMINE HCL 25 MG PO DAILY PRN DEXTROSE 50%-WATER 50 ML IV ASDIR PATIENT'S OWN MEDICATION 1 APPLICATION TOPICALLY TWICE TOPICAL BID LEVOFLOXACIN/DEXTROSE 5%-WATER 750 MG IV Q24H MAG HYDROX/AL HYDROX/SIMETH 30 ML PO Q6H PRN HYDROcodone BITARTRATE/APAP 1 TAB PO Q4H PRN HYDROcodone BITARTRATE/APAP 1 TAB PO Q4H PRN ACETAMINOPHEN 650 MG PO Q4H PRN hydrALAZINE HCL 10 MG IV Q6H PRN INSULIN LISPRO 0 UNITS SUBQ AC HS polyethylene glycoL 3350 1 PKT PO DAILY PRN INSULIN GLARGINE 36 UNITS SUBQ QAM@0800 ENOXAPARIN SODIUM 40 MG SUBQ DAILY LINAGLIPTIN 5 MG PO DAILY LABS HGBA1C - GLYCOSYLATED HGB (09/17/23 12:21) GLYCOSYLATED HEMOGLOBIN (HA1C) 8.3 H TSH REFX FT4 (09/17/23 12:22) TSH REFLEX TO FT4 1.43 LIPID PROFILE (CORONARY RISK) (09/17/23 19:45) TRIGLYCERIDES 238 H CHOLESTEROL 181 CHOLESTEROL/HDL RATIO 6 HDL CHOLESTEROL 32 L LIPOPROTEIN LDL 114 H LIP (09/17/23 19:45) LIPASE 31 ROSALBA (09/17/23 19:45) AMYLASE 22 L GLU BED (09/18/23 08:07) GLUBED 156 H CBC W/AUTO DIFF (09/18/23 02:51) WHITE BLOOD CELL 21.2H H RED BLOOD CELL 4.33 HEMOGLOBIN 13.0L L HEMATOCRIT 38.9L L MEAN CELL VOLUME 90 MEAN CELL HGB 30.0 MEAN CELL HGB CONCENTRATION 33.4 RED CELL DISTRIBUTION WIDTH 14.3 PLATELET COUNT 340 MEAN PLATELET VOLUME 11.5 NEUTROPHIL % 75.3 IMMATURE GRANULOCYTE % 0.7 LYMPHOCYTE % 9.8 L MONOCYTE % 9.4 EOSINOPHIL % 4.3 BASOPHIL % 0.5 NUCLEATED RBC % 0.0 NEUTROPHIL # 15.98 H IMMATURE GRANULOCYTE # 0.140 H LYMPHOCYTE # 2.09 MONOCYTE # 1.99 H EOSINOPHIL # 0.91 H BASOPHIL # 0.11 H NUCLEATED RBC # 0.000 VANCO TR (09/18/23 02:51) VANCOMYCIN TROUGH 15.1 BASIC METABOLIC PANEL (09/18/23 02:51) SODIUM 135 POTASSIUM 3.5 CHLORIDE 104 CARBON DIOXIDE 28 ANION GAP 6.5 GLUCOSE 172H H BLOOD UREA NITROGEN 10 GLOMERULAR FILTRATION RATE >=60 max estimate CREATININE 0.6 BUN/CREATININE RATIO 16.7 CALCIUM 8.3 L GLU BED (09/17/23 20:47) GLUBED 273 H LIPID PROFILE (CORONARY RISK) (09/17/23 19:45) TRIGLYCERIDES 238 H CHOLESTEROL 181 CHOLESTEROL/HDL RATIO 6 HDL CHOLESTEROL 32 L LIPOPROTEIN LDL 114 H LIP (09/17/23 19:45) LIPASE 31 ROSALBA (09/17/23 19:45) AMYLASE 22 L GLU BED (09/17/23 16:28) GLUBED 215 H GLU BED (09/17/23 12:28) GLUBED 221 H RPR (09/17/23 12:22) RAPID PLASMA REAGIN CRP (09/17/23 12:22) C REACTIVE PROTEIN 7.45 H CBC W/AUTO DIFF (09/17/23 12:22) WHITE BLOOD CELL 21.0H H RED BLOOD CELL 4.49 HEMOGLOBIN 13.3L L HEMATOCRIT 40.0 MEAN CELL VOLUME 89 D MEAN CELL HGB 29.6 MEAN CELL HGB CONCENTRATION 33.3 RED CELL DISTRIBUTION WIDTH 14.5 H PLATELET COUNT 338 MEAN PLATELET VOLUME 12.0 NEUTROPHIL % 71.1 IMMATURE GRANULOCYTE % 0.5 LYMPHOCYTE % 13.7 L MONOCYTE % 9.3 EOSINOPHIL % 4.8 BASOPHIL % 0.6 NUCLEATED RBC % 0.0 NEUTROPHIL # 14.98 H IMMATURE GRANULOCYTE # 0.110 H LYMPHOCYTE # 2.88 MONOCYTE # 1.95 H EOSINOPHIL # 1.00 H BASOPHIL # 0.12 H NUCLEATED RBC # 0.000 PHOS (09/17/23 12:22) PHOSPHOROUS 2.6 HIV 1 amp;2 AG/AB (09/17/23 12:22) HIV 1 2 COMBO AG/AB SCREEN Non-Reactive TSH REFX FT4 (09/17/23 12:22) TSH REFLEX TO FT4 1.43 BASIC METABOLIC PANEL (09/17/23 12:22) SODIUM 134L L POTASSIUM 3.7 CHLORIDE 104 CARBON DIOXIDE 28 ANION GAP 5.7 GLUCOSE 222H H BLOOD UREA NITROGEN 10 GLOMERULAR FILTRATION RATE >=60 max estimate CREATININE 0.6 BUN/CREATININE RATIO 16.7 CALCIUM 9.1 SED RATE (09/17/23 12:22) SED RATE 28 H MAG (09/17/23 12:22) MAGNESIUM 2.1 HBSAG (09/17/23 12:21) AG HEPATITIS B SURFACE Non-Reactive HAVMAB (09/17/23 12:21) AB HEPATITIS A IGM Non-Reactive HGBA1C - GLYCOSYLATED HGB (09/17/23 12:21) GLYCOSYLATED HEMOGLOBIN (HA1C) 8.3 H HCVAB (09/17/23 12:21) AB HEPATITIS C Non-Reactive HB CORE IGM AB (09/17/23 12:21) AB HEPATITIS B CORE IGM Non-Reactive -- ATTESTATION -- TIME SPENT ON PATIENT CARE: - Direct 35 minutes CARE ACTIVITIES / CARE COORDINATION: - I have reviewed the history and repeated the burrell elements - I have seen and examined this patient - I have discussed the patient's condition with other members of the care team ADDITIONAL DETAIL: I HAVE SPENT >40 MINUTES IN THE EVALUATION AND TREATMENT OF THIS PATIENT. Signed in PatientKeeper by Homero Roach MD on 09/18/23 at 10:39 at 1039 ATTENTION *EDITS and/or ADDENDA must be made in Patient Keeper for this note. * * Edits and ammendments created in [employer] are not visible * * in Patient Keeper or the legal medical record ([facility] * [facility] #: [id number] END OF REPORT [facility] 2023-09-17 20:58:00 THIS REPORT HAS BEEN APPENDED [facility] [place] Infect. Dis. Consultation REPORT #: [id number] REPORT STATUS: Signed DATE: 09/17/23 TIME: 2057 PATIENT: CATA MERA UNIT #: [id number] ROOM #: [id number] BED: 1 : 75 AGE: 48 SEX: M ATTEND: Shivam Beth MD [facility] AUTHOR: Pema Khan DO ATTENTION *EDITS and/or ADDENDA must be made in Patient Keeper for this note. * * Edits and ammendments created in [email or web address] are not visible * * in Patient Keeper or the legal medical record ([facility] * -- ASSESSMENT AND PLAN -- GENERAL ASSESSMENT: Assessment: #RUE cellulitis/folliculitis ?recent exposure to poison oak #History of MRSA infection #DM2 #Polysubstance abuse Plan: - continue vancomycin - start cefepime - may need CT scan of LUE - blood cultures - wound cultures - monitor CBC and fever curve Thank you for this consult, Pema Khan DO -- HISTORY -- REASON FOR CONSULT: Antimicrobial recommendations HPI: 48-year-old male vaginal discharge diabetes and MRSA infection in the back, afebrile with overall stable vitals labs show leukocytosis 21,000, hemoglobin A1c 8.3%, UA negative, opiate positive on UDS. Blood cultures pending. On vancomycin. ID consulted for antimicrobial recommendations. PAST MEDICAL HISTORY: Hypertension Hyperlipidemia DM type II Polysubstance abuse IVDA MRSA infection to spine PAST SURGICAL HISTORY: Back surgery due to MRSA infection -- ALLERGIES/HOME MEDS -- ALLERGIES: cephalexin (Intermediate - Allergy) HOME MEDICATIONS: Desonide lotn 0.05 % 1 APPLIC TOPICAL BID diphenhydrAMINE capsule oral Insulin (NPH/Reg 70/30) Inj (HumuLIN 70/30 Inj) 6 UNITS SUBQ AC BK Insulin Aspart Inj (NF) (NovoLOG Inj (NF)) 1 UNITS SUBQ ASDIR -- SUBJECTIVE -- -REVIEW OF SYSTEMS- COMMENT: 10 point ROS neagtive except per HPI -- OBJECTIVE -- VITALS (09/15 20:58 - 09/16 20:58): Temperature F: 98.5 Temperature C: 36.7 (36.5 - 36.9) Temperature source: Oral Pulse Rate 78 (77 - 94) Respiratory rate: 17 (15 - 18) Blood pressure: 170/81 (140/72 - 183/86) I/Os (09/15 07:00 - 09/16 07:00): Net 300 Intake 300 -EXAM- OTHER: NAD. HEENT: normocephalic, atraumatic. lungs- CTA B/L. no crackles, ronchi or wheezes. Heart-s1s2, RRR, no rubs or gallops. Abd- soft. Musk: no edema B/L. Skin - no jaundice noted. severe folliculitis of R forearm Neuro- AAOX3. Psych- cooperative -- DATA -- MEDICATIONS NICOTINE 21 MG TRANSDERM DAILY ALPRAZolam 0.5 MG PO BID PRN VANCOMYCIN HCL with/in SODIUM CHLORIDE 0.9% 1250 MG IV Q8H DOCUSATE SODIUM 100 MG PO BID PRN ONDANSETRON HCL/PF 4 MG IV Q4H PRN metFORMIN HCL 500 MG PO C BK DIN GLUCAGON 1 MG IM ASDIR PRN VANCOMYCIN PHARMACY TO DOSE 1 EACH IV ASDIR MELATONIN 3 MG PO BEDTIME PRN diphenhydrAMINE HCL 25 MG PO DAILY PRN DEXTROSE 50%-WATER 50 ML IV ASDIR PATIENT'S OWN MEDICATION 1 APPLICATION TOPICALLY TWICE TOPICAL BID MAG HYDROX/AL HYDROX/SIMETH 30 ML PO Q6H PRN HYDROcodone BITARTRATE/APAP 1 TAB PO Q4H PRN HYDROcodone BITARTRATE/APAP 1 TAB PO Q4H PRN ACETAMINOPHEN 650 MG PO Q4H PRN hydrALAZINE HCL 10 MG IV Q6H PRN INSULIN LISPRO 0 UNITS SUBQ AC HS polyethylene glycoL 3350 1 PKT PO DAILY PRN INSULIN GLARGINE 36 UNITS SUBQ QAM@0800 ENOXAPARIN SODIUM 40 MG SUBQ DAILY LINAGLIPTIN 5 MG PO DAILY LABS GLU BED (09/17/23 20:47) GLUBED 273 H LIPID PROFILE (CORONARY RISK) (09/17/23 19:45) TRIGLYCERIDES 238 H CHOLESTEROL 181 CHOLESTEROL/HDL RATIO 6 HDL CHOLESTEROL 32 L LIPOPROTEIN LDL 114 H LIP (09/17/23 19:45) LIPASE 31 ROSALBA (09/17/23 19:45) AMYLASE 22 L GLU BED (09/17/23 16:28) GLUBED 215 H GLU BED (09/17/23 12:28) GLUBED 221 H CRP (09/17/23 12:22) C REACTIVE PROTEIN 7.45 H CBC W/AUTO DIFF (09/17/23 12:22) WHITE BLOOD CELL 21.0H H RED BLOOD CELL 4.49 HEMOGLOBIN 13.3L L HEMATOCRIT 40.0 MEAN CELL VOLUME 89 D MEAN CELL HGB 29.6 MEAN CELL HGB CONCENTRATION 33.3 RED CELL DISTRIBUTION WIDTH 14.5 H PLATELET COUNT 338 MEAN PLATELET VOLUME 12.0 NEUTROPHIL % 71.1 IMMATURE GRANULOCYTE % 0.5 LYMPHOCYTE % 13.7 L MONOCYTE % 9.3 EOSINOPHIL % 4.8 BASOPHIL % 0.6 NUCLEATED RBC % 0.0 NEUTROPHIL # 14.98 H IMMATURE GRANULOCYTE # 0.110 H LYMPHOCYTE # 2.88 MONOCYTE # 1.95 H EOSINOPHIL # 1.00 H BASOPHIL # 0.12 H NUCLEATED RBC # 0.000 PHOS (09/17/23 12:22) PHOSPHOROUS 2.6 TSH REFX FT4 (09/17/23 12:22) TSH REFLEX TO FT4 1.43 SED RATE (09/17/23 12:22) SED RATE 28 H BASIC METABOLIC PANEL (09/17/23 12:22) SODIUM 134L L POTASSIUM 3.7 CHLORIDE 104 CARBON DIOXIDE 28 ANION GAP 5.7 GLUCOSE 222H H BLOOD UREA NITROGEN 10 GLOMERULAR FILTRATION RATE >=60 max estimate CREATININE 0.6 BUN/CREATININE RATIO 16.7 CALCIUM 9.1 MAG (09/17/23 12:22) MAGNESIUM 2.1 HBSAG (09/17/23 12:21) AG HEPATITIS B SURFACE Non-Reactive HAVMAB (09/17/23 12:21) AB HEPATITIS A IGM Non-Reactive HGBA1C - GLYCOSYLATED HGB (09/17/23 12:21) GLYCOSYLATED HEMOGLOBIN (HA1C) 8.3 H HCVAB (09/17/23 12:21) AB HEPATITIS C Non-Reactive HB CORE IGM AB (09/17/23 12:21) AB HEPATITIS B CORE IGM Non-Reactive GLU BED (09/17/23 09:36) GLUBED 239 H DRUGS OF ABUSE SCREEN URINE (09/17/23 07:43) UR COCAINE NEGATIVE UR METHAMPHETAMINE NEGATIVE UR CANABINOIDS NEGATIVE UR AMPHETAMINE NEGATIVE UR BARBITURATE NEGATIVE UR BENZODIAZEPINE NEGATIVE UR OPIATES QUAL POSITIVE H UR TRICYCLICS Negative UR PHENCYCLIDINE (PCP) Negative UA RFLX MICR amp;CULT IF INDICATED (09/17/23 07:43) UA COLOR STRAW UA APPEARANCE CLEAR UA GLUCOSE DIPSTICK 3+ H UA BILIRUBIN DIPSTICK NEGATIVE UA KETONE DIPSTICK NEGATIVE UA SPECIFIC GRAVITY 1.020 UA BLOOD DIPSTICK NEGATIVE UA PH DIPSTICK 5.0 UA PROTEIN DIPSTICK NEGATIVE UA UROBILINOGEN DIPSTICK NEGATIVE UA NITRITE DIPSTICK NEGATIVE UA LEUKOCYTE ESTERASE DIPSTICK NEGATIVE UA WBC 0-2 UA RBC NONE SEEN UA BACTERIA RARE UA SQUAMOUS CELLS RARE CBC W/AUTO DIFF (09/16/23 23:33) WHITE BLOOD CELL 20.9H H RED BLOOD CELL 4.35 HEMOGLOBIN 13.0L L HEMATOCRIT 40.7 MEAN CELL VOLUME 94 MEAN CELL HGB 29.9 MEAN CELL HGB CONCENTRATION 31.9 RED CELL DISTRIBUTION WIDTH 14.6 H PLATELET COUNT 330 MEAN PLATELET VOLUME 11.7 NEUTROPHIL % 65.8 IMMATURE GRANULOCYTE % 1.6 H LYMPHOCYTE % 18.0 MONOCYTE % 10.4 EOSINOPHIL % 3.7 BASOPHIL % 0.5 NUCLEATED RBC % 0.0 NEUTROPHIL # 13.73 H IMMATURE GRANULOCYTE # 0.340 H LYMPHOCYTE # 3.75 MONOCYTE # 2.17 H EOSINOPHIL # 0.78 H BASOPHIL # 0.11 H NUCLEATED RBC # 0.000 GLU BED (09/16/23 22:08) GLUBED 225 H Signed in PatientKeeper by Pema Khan DO on 09/17/23 at 21:04 at 2104 SECTION 2 ADDENDUM 1: 09/17/232105 PTKEEPER start levaquin will explore cephalosporin allergy at 2106 ATTENTION *EDITS and/or ADDENDA must be made in Patient Keeper for this note. * * Edits and ammendments created in [facility] are not visible * * in Patient Keeper or the legal medical record (HPF). * [facility] #: [id number] END OF REPORT [facility] 2023-09-17 15:09:00 [facility] [place] Med Order Sheet REPORT #: [id number] REPORT STATUS: Signed DATE: 09/17/23 TIME: 1509 PATIENT: CATA MERA UNIT #: [id number] ROOM #: NC.5306 BED: 1 : 75 AGE: 48 SEX: M ATTEND: Shivam Beth MD ADM AUTHOR: Cesario Daniel DO ATTENTION *EDITS and/or ADDENDA must be made in Patient Keeper for this note. * * Edits and ammendments created in [facility] are not visible * * in Patient Keeper or the legal medical record (HPF). * Admission Medication Reconciliation -- CONTINUED / CHANGED HOME MEDICATIONS -- Home: Desonide lotn 0.05 % 1 APPLIC TOPICAL BID Hosp: Desonide lotn 0.05 % 1 APPLIC TOPICAL BID Home: diphenhydrAMINE capsule oral Hosp: diphenhydrAMINE capsule 25 MG oral daily PRN itching Home: Insulin Aspart Inj (NF) (NovoLOG Inj (NF)) 1 UNITS SUBQ ASDIR Hosp: Existing: Insulin Lispro InJ (HumaLOG Inj) 0 UNITS SUBQ AC HS stopping on 10/16 at 07:31 -- STOPPED HOME MEDICATIONS -- Home: Insulin (NPH/Reg 70/30) Inj (HumuLIN 70/30 Inj) 6 UNITS SUBQ AC BK at 1509 ATTENTION *EDITS and/or ADDENDA must be made in Patient Keeper for this note. * * Edits and ammendments created in [employer] are not visible * * in Patient Keeper or the legal medical record ([facility] * RPT #: [id number] END OF REPORT [facility] 2023-09-17 14:10:00 [facility] [place] ([facility]) Hospitalist Progress Note REPORT #: [id number] REPORT STATUS: Signed DATE: 09/17/23 TIME: 1410 PATIENT: CATA MERA UNIT #: [id number] ROOM #: NC.5306 BED: 1 : 75 AGE: 48 SEX: M ATTEND: Shivam Beth MD ADM AUTHOR: Cesario Daniel DO ATTENTION *EDITS and/or ADDENDA must be made in Patient Keeper for this note. * * Edits and ammendments created in [employer] are not visible * * in Patient Keeper or the legal medical record ([facility] * -- ASSESSMENT AND PLAN -- GENERAL ASSESSMENT: #Suspected folliculitis/abscess left forearm #H/O MRSA -Started on IV vancomycin in ED, will continue dosed per pharmacy -ID consulted; recs appreciated -blood cx -WOCN consult to further evaluate #DM 2 w/ hyperglycemia -ISS, Accu-Cheks qAC and HS -Hypoglycemic protocol -endo consult #HTN -Restart home medications -PRN IV Hydralazine -Monitor BP/HR q4h #Polysubstance abuse #Tobacco abuse -Nicotine replacement -Recommended complete abstinence #STD exposure -f/u STD labs, HIV, hepatitis panel #DVT PPx -Lovenox Disposition: Further recommendations based on clinical response. Code status: FULL CODE -- SUBJECTIVE -- HPI: Continues to endorse generalized itching -- OBJECTIVE -- VITALS (09/15 14:10 - 09/16 14:10): Temperature F: 98.5 (98.5 - 98.6) Temperature C: 36.6 (36.5 - 36.9) Temperature source: Oral Pulse Rate 77 (77 - 98) Respiratory rate: 18 (15 - 18) Blood pressure: 161/85 (140/76 - 206/86) I/Os (09/15 07:00 - 09/16 07:00): Net 300 Intake 300 -EXAM- OTHER: GENERAL: No acute distress, non-toxic appearing, awake and conversant. HEAD: Normal with no signs of head trauma. EYES: PERRLA, EOMI, conjunctiva normal, no discharge. ENT: Hearing grossly intact, no nasal discharge, moist oral mucosa. NECK: Neck is supple, no tenderness, no masses or thyromegaly, no JVD. LUNGS: Clear breath sounds bilaterally. No wheezes, rales, or rhonchi. HEART: RRR, NL S1/S2, no murmurs, no lower extremity edema. ABD: Bowel sounds +, soft, nondistended, no guarding or rebound. EXT: Normal range of motion, no joint swelling, no clubbing, no cyanosis. SKIN: diffuse rashes more pronounced in upper extremities, NEURO: Alert and oriented x 3. Normal affect. -- DATA -- MEDICATIONS NICOTINE 21 MG TRANSDERM DAILY ALPRAZolam 0.5 MG PO BID PRN VANCOMYCIN HCL with/in SODIUM CHLORIDE 0.9% 1250 MG IV Q8H DOCUSATE SODIUM 100 MG PO BID PRN ONDANSETRON HCL/PF 4 MG IV Q4H PRN GLUCAGON 1 MG IM ASDIR PRN VANCOMYCIN PHARMACY TO DOSE 1 EACH IV ASDIR MELATONIN 3 MG PO BEDTIME PRN DEXTROSE 50%-WATER 50 ML IV ASDIR MAG HYDROX/AL HYDROX/SIMETH 30 ML PO Q6H PRN HYDROcodone BITARTRATE/APAP 1 TAB PO Q4H PRN HYDROcodone BITARTRATE/APAP 1 TAB PO Q4H PRN ACETAMINOPHEN 650 MG PO Q4H PRN hydrALAZINE HCL 10 MG IV Q6H PRN INSULIN LISPRO 0 UNITS SUBQ AC HS polyethylene glycoL 3350 1 PKT PO DAILY PRN ENOXAPARIN SODIUM 40 MG SUBQ DAILY LABS GLU BED (09/17/23 12:28) GLUBED 221 H TSH REFX FT4 (09/17/23 12:22) TSH REFLEX TO FT4 1.43 CRP (09/17/23 12:22) C REACTIVE PROTEIN 7.45 H BASIC METABOLIC PANEL (09/17/23 12:22) SODIUM 134L L POTASSIUM 3.7 CHLORIDE 104 CARBON DIOXIDE 28 ANION GAP 5.7 GLUCOSE 222H H BLOOD UREA NITROGEN 10 GLOMERULAR FILTRATION RATE >=60 max estimate CREATININE 0.6 BUN/CREATININE RATIO 16.7 CALCIUM 9.1 MAG (09/17/23 12:22) MAGNESIUM 2.1 PHOS (09/17/23 12:22) PHOSPHOROUS 2.6 GLU BED (09/17/23 09:36) GLUBED 239 H DRUGS OF ABUSE SCREEN URINE (09/17/23 07:43) UR COCAINE NEGATIVE UR METHAMPHETAMINE NEGATIVE UR CANABINOIDS NEGATIVE UR AMPHETAMINE NEGATIVE UR BARBITURATE NEGATIVE UR BENZODIAZEPINE NEGATIVE UR OPIATES QUAL POSITIVE H UR TRICYCLICS Negative UR PHENCYCLIDINE (PCP) Negative UA RFLX MICR amp;CULT IF INDICATED (09/17/23 07:43) UA COLOR STRAW UA APPEARANCE CLEAR UA GLUCOSE DIPSTICK 3+ H UA BILIRUBIN DIPSTICK NEGATIVE UA KETONE DIPSTICK NEGATIVE UA SPECIFIC GRAVITY 1.020 UA BLOOD DIPSTICK NEGATIVE UA PH DIPSTICK 5.0 UA PROTEIN DIPSTICK NEGATIVE UA UROBILINOGEN DIPSTICK NEGATIVE UA NITRITE DIPSTICK NEGATIVE UA LEUKOCYTE ESTERASE DIPSTICK NEGATIVE UA WBC 0-2 UA RBC NONE SEEN UA BACTERIA RARE UA SQUAMOUS CELLS RARE CBC W/AUTO DIFF (09/16/23 23:33) WHITE BLOOD CELL 20.9H H RED BLOOD CELL 4.35 HEMOGLOBIN 13.0L L HEMATOCRIT 40.7 MEAN CELL VOLUME 94 MEAN CELL HGB 29.9 MEAN CELL HGB CONCENTRATION 31.9 RED CELL DISTRIBUTION WIDTH 14.6 H PLATELET COUNT 330 MEAN PLATELET VOLUME 11.7 NEUTROPHIL % 65.8 IMMATURE GRANULOCYTE % 1.6 H LYMPHOCYTE % 18.0 MONOCYTE % 10.4 EOSINOPHIL % 3.7 BASOPHIL % 0.5 NUCLEATED RBC % 0.0 NEUTROPHIL # 13.73 H IMMATURE GRANULOCYTE # 0.340 H LYMPHOCYTE # 3.75 MONOCYTE # 2.17 H EOSINOPHIL # 0.78 H BASOPHIL # 0.11 H NUCLEATED RBC # 0.000 GLU BED (09/16/23 22:08) GLUBED 225 H -- QUALITY -- -VTE PROPHYLAXIS -GENERAL- Yes TYPE OF VTE Lovenox -- ATTESTATION -- TIME SPENT ON PATIENT CARE: - Direct 40 minutes CARE ACTIVITIES / CARE COORDINATION: - I have reviewed the history and repeated the burrell elements - I have seen and examined this patient - I have reviewed the progress in the clinical course since the last examination - I have discussed the patient's condition with other members of the care team Signed in PatientKeeper by Cesario Daniel DO on 09/17/23 at 14:29 at 1429 ATTENTION *EDITS and/or ADDENDA must be made in Patient Keeper for this note. * * Edits and ammendments created in [facility] are not visible * * in Patient Keeper or the legal medical record (HPF). * RPT #: [id number] END OF REPORT [facility] 2023-09-17 02:19:00 [facility]) Pharmacy Prog.Note-Vancomycin REPORT#:[id number] REPORT STATUS: Signed REPORT INITIALIZATION DATE:09/17/23 TIME: 218 PATIENT: CATA MERA UNIT #: [id number] [address] 1 : [address] AGE: 48 SEX: M ATTEND: Shivam Beth MD ADM AUTHOR: Levi Kelley [facility] REPT SERVICE DT/TIME: 09/17/23218 * ALL edits or amendments must be made on the electronic/computer document * Vancomycin Vancomycin Medication Therapy Goal: trough 10-15 mcg/mL Indication for treatment: SSTI X 7 DAYS Current therapy: IND: SSTI X 7 DAYS (ENDS 09/24/23) 09/16: SCR:0.7, LD VANC 1,000 MG, MD: 1,250 MG Q8H, FOLLOW UP WITH VT 09/17/23 @ 1800 Day of therapy: 1 OF 7 DAYS Actual weight (kg): 69.100 VS and I/O: Vital Signs Date Temp Pulse Resp B/P B/P Mean Pulse Ox FiO2 09/15 36.9-37.0 81-98 15-18 172-206/78-86 113-126 95-100 72 hours ending at 0700 09/13 1900 09/14 0700 09/14 1900 09/15 0700 09/15 09/16 1900 0700 Intake 300 Total Output Total Balance 300 Intake, 300 Oral Patient 69.1 kg Weight Weight Standing scale Measuremen t Method 72 Hour I O Total 09/14 0700 09/15 0700 09/16 0700 Intake Total 300 Output Total Balance 300 Labs: Laboratory Test : 09/15 2332 Hematology WBC (4.5 - 11.0 10 3/uL) 20.9 H Microbiology: 09/16 212 NASAL: MRSA Screen - COLB 09/16 2331 BLOOD: Blood Culture - RECD 09/16 2331 BLOOD: Blood Culture - RECD 09/16 2331 BLOOD: Blood Culture - RECD 09/16 2331 BLOOD: Blood Culture - RECD 09/15 2301 URINE: Chlamydia/GC DNA Probe (IGOR) - COLB Drug admin history: Lab Lab Level SCr Info Manager Of It Med Dose Interaction/Dialysis Date/Time Date/Time Notes: Treatment plan: consult, initiation of therapy Follow up: Lab: VANNCOMYCIN TROUGH, BMP, MRSA at 0223 RPT #:[id number] END OF REPORT [facility] 2023-09-16 21:57:00 [facility] [place] ([facility]) Hospitalist Zachary Carbone REPORT #: [id number] REPORT STATUS: Signed DATE: 09/16/23 TIME: 2156 PATIENT: CATA MERA UNIT #: [id number] ROOM #: NC.5306 BED: 1 : 75 AGE: 48 SEX: M ATTEND: Shivam Beth MD ADM AUTHOR: aCrli Mcnulty NP ATTENTION *EDITS and/or ADDENDA must be made in Patient Keeper for this note. * * Edits and ammendments created in [employer] are not visible * * in Patient Keeper or the legal medical record (HPF). * -- CO-SIGNATURE -- COMMENTS: Agree with the findings and plan as documented by Carli Mcnulty NP. Pt seen and examined. Moderate complexity. Signed in PatientKeeper by SHIVAM BETH MD on 09/20/23 at 12:36 -- HISTORY -- ADMISSION DATE: 2023-09-16 PRIMARY CARE PROVIDER: Primary or Family Physician, No CHIEF COMPLAINT: Extensive rash on the body, left forearm abscess HPI: This is a 48-year-old male with past medical history of hypertension, hyperlipidemia, newly diagnosed DM 2, polysubstance abuse/IVDA, and prior history of MRSA, who presented to our facility from an outside ER to be evaluated for possibly staph infection and what appears to be severe folliculitis -some of the lesions on his left arm and legs are painful and itchy. States he was diagnosed with contact dermatitis probably due to poison cleve, 5 days ago, at the same ER. States since then it got progressively worse and now he has an abscess to his left forearm that is draining pus. He otherwise denies any fever, chills, chest pain, shortness of breath, nausea or vomiting, abdominal pain, or any other symptoms. PAST MEDICAL HISTORY: Hypertension Hyperlipidemia DM type II Polysubstance abuse IVDA MRSA infection to spine PAST SURGICAL HISTORY: Back surgery due to MRSA infection Testicles FAMILY HISTORY: Noncontributory -SOCIAL HISTORY- -TOBACCO USE- DETAILS/COMMENTS: Smokes 1 pack of cigarettes daily -VAPING/INHALED SOLVENTS- DETAILS/COMMENTS: Denies use -ALCOHOL USE- DETAILS/COMMENTS: Denies use -DRUG USE- DETAILS/COMMENTS: Stop doing drugs 3 months ago -- ALLERGIES/HOME MEDS -- ALLERGIES: cephalexin (Intermediate - Allergy) HOME MEDICATIONS: Desonide lotn 0.05 % 1 APPLIC TOPICAL BID diphenhydrAMINE capsule oral Insulin (NPH/Reg 70/30) Inj (HumuLIN 70/30 Inj) 6 UNITS SUBQ AC BK Insulin Aspart Inj (NF) (NovoLOG Inj (NF)) 1 UNITS SUBQ ASDIR HOME MEDICATIONS COMMENTS: Unable to obtain an accurate home medication list at this time. The patient is in an urgent or emergent medical situation where time is of the essence. To delay treatment would jeopardize the patient's health status on the day of the encounter. -- SUBJECTIVE -- -REVIEW OF SYSTEMS- COMMENT: Questioning of 14 point review of systems, including questioning of head, eyes, ears, nose, throat, cardiopulmonary, gastrointestinal, genitourinary, musculoskeletal, endocrine, and hematologic body systems are otherwise unremarkable except for those noted in the HPI. -- OBJECTIVE -- VITALS (09/14 21:57 - 09/15 21:57): Temperature F: 98.5 (98.5 - 98.6) Pulse Rate 85 (85 - 98) Respiratory rate: 15 (15 - 17) Blood pressure: 183/78 (183/78 - 206/86) -EXAM- OTHER: GENERAL: No acute distress, non-toxic appearing, awake and conversant. HEAD: Normal with no signs of head trauma. EYES: PERRLA, EOMI, conjunctiva normal, no discharge. ENT: Hearing grossly intact, no nasal discharge, moist oral mucosa. NECK: Neck is supple, no tenderness, no masses or thyromegaly, no JVD. LUNGS: Clear breath sounds bilaterally. No wheezes, rales, or rhonchi. HEART: RRR, NL S1/S2, no murmurs, no lower extremity edema. ABD: Bowel sounds +, soft, nondistended, no guarding or rebound. : Normal. EXT: Normal range of motion, no joint swelling, no clubbing, no cyanosis. SKIN: No rashes or lesions. NEURO: Alert and oriented x 3. Normal affect. -- ASSESSMENT AND PLAN -- GENERAL ASSESSMENT: #Suspected folliculitis/abscess left forearm #H/O MRSA -Started on IV vancomycin in ED, will continue dosed per pharmacy -ID consulted; recs appreciated -Check ESR, CRP, LA, BC x 2 -WOCN consult to further evaluate #DM 2 w/ hyperglycemia -ISS, Accu-Cheks qAC and HS -Hypoglycemic protocol -HbA1c in a.m. #HTN, poorly controlled -Restart home medications when verified -PRN IV Hydralazine -Monitor BP/HR q4h #Polysubstance abuse #Tobacco abuse -UDS pending -Nicotine replacement -Recommended complete abstinence #STD exposure -f/u STD labs, HIV, hepatitis panel #DVT PPx -Lovenox Disposition: Further recommendations based on clinical response. Code status: FULL CODE The plan of care including diagnosis, planned tests and procedures, medications, physician services consulted and LOS, was discussed with the patient at the bedside and he is agreeable. -- ATTESTATION -- TIME SPENT ON PATIENT CARE: - Direct 60 minutes - > 50% of time spent on Counseling/Care Coordination CARE ACTIVITIES / CARE COORDINATION: - I have reviewed the history and repeated the burrell elements - I have seen and examined this patient - I have discussed the patient's condition with other members of the care team Signed in PatientKeeper by Carli Mcnulty NP on 09/17/23 at 06:03 Cosigned by SHIVAM BETH MD on 09/20/23 at 12:36 at 1236 at 1236 ATTENTION *EDITS and/or ADDENDA must be made in Patient Keeper for this note. * * Edits and ammendments created in [facility] are not visible * * in Patient Keeper or the legal medical record (HPF). * [facility] #: [id number] END OF REPORT [facility] 2023-09-16 19:01:00 [facility] ([facility] EMERGENCY PROVIDER REPORT REPORT#:[id number] REPORT STATUS: Signed DATE:09/16/23 TIME: 190 PATIENT: CATA MERA UNIT #: [id number] [address]: [address]: AGE: 48 SEX: M PCP PHYS: No Primary or Family Physician SERVICE AUTHOR: Leoncio Prabhakar MD * ALL edits or amendments must be made on the electronic/computer document * HPI-Rash/Abscess/Cellulitis Free Text HPI Notes Free Text HPI Notes 48-year-old male with underlying history of insulin-dependent diabetes, hypertension, noncompliant with lisinopril presents to ER complaining of worsening rash and concerns for staph infection. He was here 5 days ago diagnosed with contact dermatitis probably due to poison cleve. 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 He was discharged on denoside. He presents here stating that the rash got worse. He is concerned about having staph infection. Denies any chest pain, shortness of breath, fever or chills. Denies any discharge. Complains of pain in several of the lesions primarily in his left arm and legs. Pertinent review system otherwise is noncontributory General Initial Greet Date/Time 09/16/231842 Presentation Chief Complaint Abscess, Rash, Return visit, abscess, Tender/swollen area Past Medical History - Adult Stated Complaint STAPH INFECTION Allergies Coded Allergies: cephalexin (From KEFLEX) (Intermediate, RASH-UNKNOWN 09/16/23) Home Medications Active Scripts Insulin Nph/Insulin Regular (Humulin 70/30) 6 UNITS SUBQ AC BK Insulin Nph/Insulin Regular (Humulin 70/30) 6 UNITS SUBQ AC BK #10 ML Prov: 09/11/23 Insulin Aspart (Novolog) 1 UNITS SUBQ ASDIR Insulin Aspart (Novolog) 1 UNITS SUBQ ASDIR #10 ML Prov: 09/11/23 Desonide (Lokara 0.05%) 1 APPLIC TOPICAL BID Desonide (Lokara 0.05%) 1 APPLIC TOPICAL BID #118 ML Prov: 09/11/23 Reported Medications Diphenhydramine (Benadryl) Additional Medical History Hypertension, insulin-dependent diabetes Alcohol Use Alcohol use Drug Use Denies recreational drugs Smoking status for patients 13 years old or older: Current every day smoker Physical Exam Vital Signs Vital Signs First Documented: Result Date Time Pulse Ox 98 09/15 1841 B/P 206/86 09/15 1841 B/P Mean 126 09/15 1841 O2 Delivery Room air 09/15 1841 Temp 37.0 09/15 1841 Pulse 98 09/15 184 Resp 17 09/15 1841 Last Documented: Result Date Time Pulse Ox 98 09/15 184 B/P 206/86 09/15 1841 B/P Mean 126 09/15 1841 O2 Delivery Room air 09/15 1841 Temp 37.0 09/15 1841 Pulse 98 09/15 1841 Resp 17 09/15 1841 Review of Vital Signs Reviewed Focused PE General/Const General/Const Awake, Alert, No acute distress, Well appearing, Well developed , Well hydrated, Well nourished, Cooperative, Not toxic appearing Ears/Nose/Throat Ears/Nose/Throat Atraumatic, Airway patent, Mucous membranes moist Resp/Chest Respiratory/Chest Atraumatic, Breath sounds NL, Breath sounds = bilat Cardiovascular Cardiovascular Heart rate NL, Regular rhythm, Heart sounds NL Skin Text/Dict Notes He has multiple vesicular and pustular lesions throughout his body including chest back arms legs. There are no palmar or plantar lesions. Some of these lesions are crusted already. There is a particular area in the left forearm posteriorly with induration and erythema. This is nontender. There is no crepitus. Neurologic Neurologic Oriented X3, Speech NL, No motor deficits Interpretation Diagnostics Lab Results Interpretation Results Microbiology: Date/Time Procedure - Status Source Growth 09/15 1899 Blood Culture - ORD BLOOD 09/15 1899 Blood Culture - ORD BLOOD 09/15 1899 Blood Culture - ORD BLOOD 09/15 1899 Blood Culture - ORD BLOOD Re-Evaluation MDM Free Text MDM Notes Free Text MDM Notes 48-year-old male with underlying history of insulin-dependent diabetes, hypertension, noncompliant with lisinopril presents to ER complaining of worsening rash and concerns for staph infection. He was here 5 days ago diagnosed with contact dermatitis probably due to poison cleve. 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 He was discharged on denoside. He presents here stating that the rash got worse. He is concerned about having staph infection. Denies any chest pain, shortness of breath, fever or chills. Denies any discharge. Complains of pain in several of the lesions primarily in his left arm and legs. Pertinent review system otherwise is noncontributory On exam patient appears nontoxic looking, has generalized multiple pustular and vesicular lesions some of which appear dry and crusted. He has a indurated area that measures about 2 to 3 cm in the left forearm. This is consistent with a possible phlegmon. He has areas of cellulitis in the left arm as well. Heart and lung exams unremarkable. Abdomen is benign. Preliminary differential diagnosis and plan reviewed with the patient; he has multiple lesions consistent with pustules. Some lesions are consistent with dry vesicles. Concerns for staph infection and cellulitis reviewed with patient. Patient will evaluate with routine labs, will receive IV vancomycin, will check lactic acid electrolytes glucose CBC. Likelihood for the need of admission reviewed the patient. He is already mentioned that he will not be admitted and is hoping just to get antibiotics. He states that he will follow-up as an outpatient Re-Evaluation/Progress Re-Evaluation/Progress Text/Dict Note lab data reviewed and d/w'd pt now agres with transfer to hospital IV vanco, fluids, solumedrol requested will d/wd hospitalist at [facility] Case was discussed with the Norris Mcnulty for Dr Shivam Beth, lab data result and plan reviewed with her. Patient accepted in transfer to telemetry. Elevated white At 23,000, glucose 389, pH 7.4 but lactic acid is 3.08, alkaline phosphatase elevated at 173, calculated anion gap is normal at 10, white count is 23,000. I decided to broaden IV coverage with IV Levaquin for gram-negative coverage. He has allergies to Keflex. I discussed with the admitting hospitalist she is in agreement for the patient to be admitted to telemetry. He is hemodynamically stable. As his gap and pH are normal. Will repeat dose of normal saline bolus, will provide a dose of IV insulin and repeat fingerstick in 1 hour. Time of Re-Eval 1956 Re-Eval Status Improved ED Course Medication(s) Ordered Medication(s) Ordered: Anti-Infective Agents Sig/Kamila Start time Last Medication Dose Route Stop Time Status Admin Levofloxacin/Dextrose 150 ML X1ED@09/15 DC 09/15 IV 09/15 Vancomycin HCl 1,000 MG X1ED STA 09/15 190 DC 09/15 Sodium Chloride 250 ML IV 09/15 Central Nervous System Agents Sig/Kamila Start time Last Medication Dose Route Stop Time Status Admin Ketorolac 15 MG X1ED STA 09/15 1944 DC 09/15 Tromethamine IV 09/15 Electrolytic, Caloric, And Rashel Sig/Kamila Start time Last Medication Dose Route Stop Time Status Admin Sodium Chloride 1,000 ML X1ED@09/15 DC / IV 09/15 Sodium Chloride 1,000 ML X1ED STA 09/15 1942 DC / IV /1943 Sodium Chloride 1,000 ML X1ED STA 09/15 185 DC / IV /1957 Hormones And Synthetic Substit Sig/Kamila Start time Last Medication Dose Route Stop Time Status Admin Insulin Human Regular 6 UNIT X1ED STA 09/15 1944 DC 09/15 IV 09/15 Patient Discharge Departure Vital Signs/Condition Vital Signs First Documented: Result Date Time Pulse Ox 98 09/15 1842 B/P 206/86 09/15 1842 B/P Mean 126 09/15 1841 O2 Delivery Room air 09/15 1841 Temp 37.0 09/15 1841 Pulse 98 09/15 1841 Resp 09/15 Last Documented: Result Date Time Pulse Ox 98 09/15 1841 B/P 206/86 09/15 1841 B/P Mean 126 09/15 1841 O2 Delivery Room air 09/15 1841 Temp 37.0 09/15 1841 Pulse 98 09/15 1841 Resp 09/15 All vital signs available at the time of this entry have been reviewed. Clinical Impression Clinical Impression Primary Impression: CELLULITIS LEFT UPPER EXTREMITY Secondary Impressions: ACUTE LEUKOCYTOSIS, HYPERGLYCEMIA Disposition Decision Hospitalize Hosp Physician Name Shivam Beth MD Hosp Physician Hospitalist Request Time 1954 Request Date 09/16/23 )( Accepts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
[2023-12-07] MEDS ORDERED: NA CHLORIDE 0.9% 1,000 ML ONE (22:17)
[2023-12-07 22:20] LABS: Absolute Basophils 0.2 K/uL (0-0.5); Absolute Eosinophils 1.6 K/uL (0-0.5); Absolute Lymphocytes (CBC) 3.1 K/uL (0.7-4.9); Absolute Monocytes 1.8 K/uL (0.1-1.3); Absolute Neutrophil 17.3 K/uL (1.8-8.0); Basophils % 0.8 % (0-1.3); Eosinophils % 6.7 % (0-4.4); Hematocrit 49.3 % (39.6-49.0); Hemoglobin 16.6 g/dL (13.6-17.9); MCH 30.2 pg (27.0-35.0); MCHC 33.6 g/dL (32.0-36.0); MCV 90.1 fL (80-100); Monocytes % 7.3 % (3.3-12.3); Neutrophils % 72.2 % (41.7-73.7); Nucleated Red Blood Cells % 0.1 % (0-0); Platelets 316 thou/uL (152-406); RBC Red Blood Cell Count 5.48 M/uL (4.33-5.43); Red Cell Distribution Width 14.3 % (12.1-15.2)
[2023-12-07 22:26] LABS: Albumin/Globulin Ratio 0.7 (1.1-1.8); Anion Gap 13.1 mEq/L (5.0-15.0); Bilirubin Total 0.3 mg/dL (0.2-1.0); Globulin 4.1 g/dL (2.3-3.5); Protein, Total 7.1 g/dL (6.4-8.2)
[2023-12-07 22:27] LABS: Potassium 4.1 mEq/L (3.5-5.1)
[2023-12-07 22:48] LABS: Band Neutrophils 8 % (0-1); Differential Total Cells Count 100; Eosinophils 14 % (0-3); Lymphocytes 15 % (15-42); Monocytes 5 % (0-10); Reactive Lymphocytes 1 %; Segmented Neutrophils 57 % (40-80)
[2023-12-07 22:49] LABS: Blood Morphology Comment NOT SEEN (NOT SEEN); Platelet Estimate ADEQ
[2023-12-07] MEDS ORDERED: cloNIDine HCL 0.1 MG TAB ONE (22:55)
[2023-12-07] MEDS ORDERED: FAMOTIDINE 20 MG/2 ML VIAL IV ONE (22:56)
[2023-12-07] MEDS ORDERED: INSULIN REGULAR (HUMAN) 100 UNIT/ML ONE (22:56)
[2023-12-07 23:14] LABS: Arterial Blood Carboxyhemoglob 3.5 % (0-1.5); Blood Gas Oxyhemoglobin 77.9 % (94-97); Blood Gas THB 16.5 g/dl (12-18); Blood O2 Saturation 82.6 % (92-98.5)
--- NOTE | 2023-12-07 23:55 | P.HP ---
Certification for Inpatient Patient admitted to: Observation With expected LOS: <2 Midnights Practitioner: I am a practitioner with admitting privileges, knowledge of patient current condition, hospital course, and medical plan of care. Services: Services provided to patient in accordance with Admission requirements found in Title 42 Section 412.3 of the Code of Federal Regulations Patient History Date of Service: 12/07/23 Reason for admission: Hyperglycemia History of Present Illness: 48-year-old male with history of diabetes, poison cleve presented with worsening erythema of arm and hyperglycemia. Physical Examination - Studies Laboratory Data (last 24 hrs) 12/07/23 12/07/23 22:00 22:00 WBC 23.90 H Hgb 16.6 Hct 49.3 H Plt Count 316 Sodium 130 L Potassium 4.1 BUN 12 Creatinine 1.26 Glucose 614 H* Total Bilirubin 0.3 AST 51 H ALT 62 H Alkaline Phosphatase 213 H Lipase 33 Assessment and Plan - Advance Directives Does patient have a Living Will: No Does patient have a Durable POA for Healthcare: No
--- NOTE | 2023-12-08 00:28 | ER ---
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 I have been on steroids and think my blood sugar is high and my vision is blurry. Coronavirus screen: At this time, the client does not indicate any symptoms associated with coronavirus-19. Ebola Screen: No symptoms or risks identified at this time. Initial Sepsis Screen: Does the patient meet any 2 criteria? No. Patient's initial sepsis screen is negative. Does the patient have a suspected source of infection? No. Patient's initial sepsis screen is negative. Risk Assessment: Do you want to hurt yourself or someone else? Patient reports no desire to harm self or others. Onset of symptoms was December 07, 2023. Transition of care: patient was not received from another setting of care. 21:35 Method Of Arrival: Ambulatory jb4 21:35 Acuity: JODIE 2 jb4 Historical: - Allergies: 21:37 Keflex; jb4 - PMHx: 21:37 Diabetes mellitus; HTN; jb4 - PSHx: 21:37 back; jb4 - Immunization history:: Adult Immunizations up to date. - Infectious Disease History:: MRSA (w/in 1 year), . - Social history:: Smoking status: Patient reports the use of cigarette tobacco products, smokes one pack cigarettes per day. Screenin:15 [facility] ED Fall Risk Assessment (Adult) History of falling in the last 3 months, lg3 including since admission No falls in past 3 months (0 pts) Confusion or Disorientation No (0 pts) Intoxicated or Sedated No (0 pts) Impaired Gait No (0 pts) Mobility Assist Device Used No (0 pt) Altered Elimination No (0 pt) Score/Fall Risk Level 0 - 2 = Low Risk Oriented to surroundings, Maintained a safe environment, Educated pt \T\ family on fall prevention, incl call for assistance when getting out of bed, Assessed \T\ reinforced patient's understanding of fall precautions. Abuse screen: Denies threats or abuse. Denies injuries from another. Nutritional screening: No deficits noted. Tuberculosis screening: No symptoms or risk factors identified. Assessment: 21:15 General: Appears in no apparent distress. uncomfortable, Behavior is calm, cooperative. lg3 Pain: Complains of pain in right arm and left arm. Neuro: No deficits noted. Gordon Agitation-Sedation Scale (RASS): 0 - Alert and Calm Level of Consciousness is awake, alert, obeys commands, Oriented to person, place, time, situation, Reports blurred vision. Cardiovascular: No deficits noted. Denies chest pain, shortness of breath, Capillary refill < 3 seconds Clubbing of nail beds is absent JVD is absent Patient's skin is warm and dry. Respiratory: No deficits noted. Airway is patent Respiratory effort is even, unlabored, Respiratory pattern is regular, symmetrical. GI: No deficits noted. No signs and/or symptoms were reported involving the gastrointestinal system. : No deficits noted. No signs and/or symptoms were reported regarding the genitourinary system. EENT: No deficits noted. Derm: Skin is intact, is healthy with good turgor, Skin is dry, Skin is normal, Skin temperature is warm Rash noted that is itchy, papular, raised, on right arm and left arm. Musculoskeletal: No deficits noted. No signs and/or symptoms reported regarding the musculoskeletal system. Circulation, motion, and sensation intact. Range of motion: intact in all extremities. 12/07 01:09 Reassessment: Patient appears in no apparent distress at this time. Patient and/or lg3 family updated on plan of care and expected duration. Pain level reassessed. Patient is alert, oriented x 3, equal unlabored respirations, skin warm/dry/pink. Patient states feeling better. Patient states symptoms have improved. Vital Signs: 12/06 21:35 BP 215 / 110; Pulse 73; Resp 18; Temp 97.6(TE); Pulse Ox 100% on R/A; Weight 72.57 kg jb4 (R); Height 5 ft. 5 in. (R); Pain 4/10; 22:30 BP 200 / 88; Pulse 68; Resp 18; Pulse Ox 98% on R/A; oe 12/07 01:09 BP 179 / 82; Pulse 69; Resp 16 S; Pulse Ox 99% on R/A; lg3 12/06 21:35 Body Mass Index 26.63 (72.57 kg, 165.1 cm) [facility] 12/06 21:35 Pain Scale: Adult jb4 ED Course: 12/06 20:52 Patient arrived in ED. mr 20:54 Jerrica Sandy, [facility] kb 20:54 Salbador Johnson MD is Attending Physician. kb 21:15 Patient has correct armband on for positive identification. Placed in gown. Bed in low lg3 position. Call light in reach. Side rails up X 1. Client placed on continuous cardiac and pulse oximetry monitoring. NIBP monitoring applied. model and mold maker plaster on. Door closed. Noise minimized. Warm blanket given. Pillow given. 21:37 Triage completed. jb4 21:37 Arm band placed on right wrist. 4 22:01 CBC with Diff Sent. jb4 22:01 CMP Sent. jb4 22:01 Lipase Sent. 4 22:01 Inserted saline lock: 18 gauge in right antecubital area, using aseptic technique. 4 Blood collected. 22:43 Zulema Damon, RN is Primary Nurse. 3 12/07 01:10 No provider procedures requiring assistance completed. IV discontinued, intact, lg3 bleeding controlled, No redness/swelling at site. Pressure dressing applied. Administered Medications: 12/06 22:26 Drug: NS 0.9% IV 1000 ml IV at 1000 ml once Route: IV; Rate: 1000 ml; Site: right [facility] antecubital; 12/07 01:11 Follow up: Response: No adverse reaction; IV Status: Completed infusion; IV Intake: lg3 1000ml 12/06 23:01 Drug: Insulin Regular Human IVP 10 units IVP once {Co-Signature: me1 (Gerardo [facility] Mikki SHOEMAKER).} Route: IVP; Site: right antecubital; 12/07 01:06 Follow up: Response: No adverse reaction; Marked relief of symptoms; Blood sugar is lg3 lowered 12/06 23:01 Drug: cloNIDine PO 0.1 mg PO once Route: PO; [facility] 12/07 01:06 Follow up: Response: No adverse reaction; No change in condition [facility] 12/06 23:01 Drug: Famotidine IVP 20 mg IVP once; dilute with 10 mL 0.9% NaCl; give over 2 minutes lg3 Route: IVP; Site: right antecubital; 12/07 01:06 Follow up: Response: No adverse reaction lg3 01:06 Drug: Trimethoprim-Sulfamethoxazole PO (160 mg-800 mg (DS) 1 tablet PO once Route: PO; lg3 01:06 Follow up: Response: No adverse reaction lg3 Medication: 12/06 21:15 VIS not applicable for this client. lg3 Intake: 12/07 01:11 IV: 1000ml; Total: 1000ml. lg3 Outcome: 00:28 Discharge ordered by . bettye 01:10 Discharged to home ambulatory, lg3 01:10 Condition: stable 01:10 Discharge instructions given to patient, Instructed on discharge instructions, follow up and referral plans. medication usage, Demonstrated understanding of instructions, follow-up care, medications, Prescriptions given X 3, 01:12 Patient left the ED. lg3 Signatures: Jerrica Sandy, CLINICAL SUPERVISOR-C CLINICAL SUPERVISOR-CkMolly Baum, Blu Reg Emmanuel Queen, RN RN jb4 Francisco Javier Mckinley Lacie, SAHARA RN lg3 Mikki Carrillo RN me1 Corrections: (The following items were deleted from the chart) 12/06 21:38 21:37 Allergies: No Known Allergies; chinyere whitlock
--- NOTE | 2023-12-08 00:28 | EDPHYS ---
Physician Documentation [facility] Name: Bg Medley Age: 48 yrs Sex: Male : 1975 Arrival Date: 12/07/2023 Time: 20:50 Bed 14 Private MD: ED Physician Salbador Johnson HPI: 12/07 00:06 This 48 yrs old Male presents to ER via Ambulatory with complaints of Poison Mitzy. kb 00:06 Pt is a 48 year old male who presents for rash due to poison mitzy that started 6 days kb ago. States he was given 5 days of prednisone and completed it, but still has the rash. States he is diabetic and believes his sugar is high as well. Pt drinking Dr Pepper at time of evaluation. I recommended that he stop drinking those. . Historical: - Allergies: 12/06 21:37 Keflex; jb4 - PMHx: 21:37 Diabetes mellitus; HTN; jb4 - PSHx: 21:37 back; jb4 - Immunization history:: Adult Immunizations up to date. - Infectious Disease History:: MRSA (w/in 1 year), . - Social history:: Smoking status: Patient reports the use of cigarette tobacco products, smokes one pack cigarettes per day. ROS: 22:48 Constitutional: As per HPI kb Exam: 12/07 00:04 Constitutional: This is a well developed, well nourished patient who is awake, alert, kb and in no acute distress. Head/Face: Normocephalic, atraumatic. ENT: Moist Mucous membranes Cardiovascular: Regular rate Respiratory: Respirations even and unlabored. No increased work of breathing. Talking in full sentences Abdomen/GI: Soft, non-tender. No distention MS/ Extremity: Pulses equal, no cyanosis. Neurovascular intact. Full, normal range of motion. Neuro: Awake and alert, GCS 15, oriented to person, place, time, and situation. Moves all extremities. Normal gait. Skin: rash a moderate rash is noted, consistent with contact dermatitis, and is diffusely located, with secondary infection to left arm, Vital Signs: 12/06 21:35 BP 215 / 110; Pulse 73; Resp 18; Temp 97.6(TE); Pulse Ox 100% on R/A; Weight 72.57 kg jb4 (R); Height 5 ft. 5 in. (R); Pain 4/10; 22:30 BP 200 / 88; Pulse 68; Resp 18; Pulse Ox 98% on R/A; oe 12/07 01:09 BP 179 / 82; Pulse 69; Resp 16 S; Pulse Ox 99% on R/A; lg3 12/06 21:35 Body Mass Index 26.63 (72.57 kg, 165.1 cm) [facility] 12/06 21:35 Pain Scale: Adult [facility] MDM: 12/06 20:54 Patient medically screened. kb 22:52 Data reviewed: vital signs, nurses notes. Consideration of Admission/Observation kb Patient was admitted/placed on observation. Escalation of care including admission/observation considered. Management of patient was discussed with the following: Hospitalist: Dr Patel will come evaluate for admission. 12/07 00:05 Differential diagnosis: contact dermatitis, impetigo, DKA, hyperglycemia. kb 00:26 Management of patient was discussed with the following: Hospitalist: Dr Patel evaluated pt, does not recommend admission. Recommends outpatient treatment with bactrim. . Counseling: I had a detailed discussion with the patient and/or guardian regarding the historical points, exam findings, and any diagnostic results supporting the discharge/admit diagnosis, lab results, the need for outpatient follow up, a family practitioner, to return to the emergency department if symptoms worsen or persist or if there are any questions or concerns that arise at home. 12/06 21:42 Order name: CBC with Diff; Complete Time: 22:49 [facility] 12/06 21:42 Order name: CMP; Complete Time: 22:30 [facility] 12/06 21:42 Order name: Lipase; Complete Time: 22:30 [facility] 12/06 21:47 Order name: Glucose, Ancillary Testing; Complete Time: 21:47 [facility] 12/06 21:52 Order name: ABG; Complete Time: 23:30 12/06 22:23 Order name: Manual Differential; Complete Time: 22:49 [facility] 12/06 23:54 Order name: Glucose, Ancillary Testing; Complete Time: 23:55 [facility] 12/06 21:19 Order name: Blood Glucose Level; Complete Time: 21:35 12/06 21:42 Order name: IV Saline Lock; Complete Time: 22:01 [facility] 12/06 21:42 Order name: Labs collected and sent; Complete Time: 22:01 jb4 Administered Medications: 12/06 22:26 Drug: NS 0.9% IV 1000 ml IV at 1000 ml once Route: IV; Rate: 1000 ml; Site: right jb4 antecubital; 12/07 01:11 Follow up: Response: No adverse reaction; IV Status: Completed infusion; IV Intake: lg3 1000ml 12/06 23:01 Drug: Insulin Regular Human IVP 10 units IVP once {Co-Signature: 1 (Gerardo, lg3 Mikki SHOEMAKER).} Route: IVP; Site: right antecubital; 12/07 01:06 Follow up: Response: No adverse reaction; Marked relief of symptoms; Blood sugar is lg3 lowered 12/06 23:01 Drug: cloNIDine PO 0.1 mg PO once Route: PO; lg3 12/07 01:06 Follow up: Response: No adverse reaction; No change in condition 3 12/06 23:01 Drug: Famotidine IVP 20 mg IVP once; dilute with 10 mL 0.9% NaCl; give over 2 minutes lg3 Route: IVP; Site: right antecubital; 12/07 01:06 Follow up: Response: No adverse reaction lg3 01:06 Drug: Trimethoprim-Sulfamethoxazole PO (160 mg-800 mg (DS) 1 tablet PO once Route: PO; lg3 01:06 Follow up: Response: No adverse reaction lg3 Disposition: 04:58 Co-signature as Attending Physician, Salbador Johnson MD I agree with the assessment and demetrius plan of care. Disposition Summary: 12/08/23 00:28 Discharge Ordered Notes: Location: Home kb Condition: Stable kb Diagnosis - Allergic contact dermatitis due to plants, except food kb - Local infection of the skin and subcutaneous tissue, unspecified kb - Hyperglycemia, unspecified kb Followup: kb - With: Emergency Department - When: As needed - Reason: Worsening of condition Followup: kb - With: Private Physician - When: 2 - 3 days - Reason: Recheck today's complaints, Continuance of care, Re-evaluation by your physician Discharge Instructions: - Discharge Summary Sheet kb - Poison Mitzy Dermatitis, [id number] kb - Hyperglycemia, [id number] kb Forms: - Medication Reconciliation Form kb - Antibiotic Education kb - Prescription Opioid Use kb - Patient Portal Instructions kb - Leadership Thank You Letter kb Prescriptions: - mupirocin 2 % Topical ointment - apply 1 application TOPICAL route 3 times per day; 1 unit; Refills: 0, Product kb Selection Permitted - Pepcid 20 mg Oral Tablet - take 1 tablet ORAL route every 12 hours for 5 days; 10 tablet; Refills: 0, kb Product Selection Permitted - Bactrim DS 800-160 mg Oral Tablet - take 1 tablet ORAL route every 12 hours for 10 days; 20 tablet; Refills: 0, kb Product Selection Permitted Signatures: Dispatcher [employer] EDJerrica Lobato FNP-Lore HOLCOMB-Salbador Cano MD MD cha Bryson, James, RN RN jb4 Zulema Damon RN RN lg3 Mikki Carrillo RN me1 Corrections: (The following items were deleted from the chart) 12/06 21:38 21:37 Allergies: No Known Allergies; jb4 jb4 21:42 21:42 CBC+H.LAB.BRZ ordered. EDMS EDMS 21:42 21:42 COMPREHENSIVE METABOLIC PANEL+C.LAB.BRZ ordered. EDMS EDMS 21:42 21:42 LIPASE+C.LAB.BRZ ordered. EDMS EDMS
[2023-12-08] MEDS ORDERED: SMZ./TMP. 800/160 MG TABLET ONE (00:42)
[2023-12-08 01:22] VITALS: TEMP 97.6
[2023-12-08 01:38] VITALS: BP 179/82; O2SAT 99
== END 2023-12-08 01:12 | disposition home or self-care (01) ==
LOC: ER 20:50
DX: L23.7 Allergic contact dermatitis due to plants, except food (principal); L08.9 Local infection of the skin and subcutaneous tissue, unspecified; E11.65 Type 2 diabetes mellitus with hyperglycemia
CPT/HCPCS: 36415; 36600; 80053; 82805; 82947; 83690; 85025; 96361; 96374; 96375; 99285; J7030